=== PATIENT | female | born 1960 | race Caucasian/White ===

== ENCOUNTER → 2017-09-02 14:31 | Outpatient (CLI) | payer MEDICAID, SELFPAY ==
[2017-09-02 14:56] LABS: Alanine Aminotransferase 87 U/L (12-78); Albumin Level 3.8 gm/dL (3.4-5.0); Alkaline Phosphatase 218 U/L (46-116); Anion Gap 13.3 mEq/L (5-15); Aspartate Amino Transferase 97 U/L (15-37); Bilirubin,Total 0.6 mg/dL (0.2-1.0); Blood Urea Nitrogen 6 mg/dL (7-18); Carbon Dioxide 27 mmol/L (21.0-32.0); Chloride 101 mmol/L (98-107); Cholesterol 123 mg/dL (140-200); Creatinine,Serum 0.57 mg/dL (0.55-1.02); Estimated Glomerular Filt Rate 109 ml/min (>60); GFR (African American) 132 ML/MIN (>60); Globulin 3.7 gm/dl (1.3-3.2); Glucose 166 mg/dL (74-106); HDL Cholesterol 41 mg/dL (29-89); LDL Cholesterol 49 mg/dL (0-130); Potassium 4.3 mmoL/L (3.5-5.1); Sodium 137 mmol/L (136-145); Total Protein,Serum 7.5 gm/dL (6.4-8.2); Triglycerides 165 mg/dL (30-200); VLDL Cholesterol 33 mg/dL (0-40)
[2017-09-02 16:47] LABS: Hemoglobin A1C 6.7 % (0.0-7.0)
== END ==
PROVIDERS: PCP Internal Medicine Adolescent Medicine; Visit Provider Internal Medicine Adolescent Medicine
DX: E11.9 Type 2 diabetes mellitus without complications (principal); E78.5 Hyperlipidemia, unspecified
CPT/HCPCS: 36415; 80053; 80061; 83036

== ENCOUNTER → 2018-03-19 14:38 | Outpatient (CLI) | payer MEDICAID, SELFPAY ==
[2018-03-19 16:25] LABS: Alanine Aminotransferase 41 U/L (12-78); Albumin Level 3.6 gm/dL (3.4-5.0); Albumin/Globulin Ratio 1.2 (1.1-1.8); Alkaline Phosphatase 153 U/L (46-116); Anion Gap 12.3 mEq/L (5-15); Aspartate Amino Transferase 30 U/L (15-37); Bilirubin,Total 0.7 mg/dL (0.2-1.0); Blood Urea Nitrogen 5 mg/dL (7-18); Calcium 8.9 mg/dL (8.5-10.1); Carbon Dioxide 26 mmol/L (21.0-32.0); Chloride 97 mmol/L (98-107); Chol/HDL Ratio 3.7 (1-3.5); Cholesterol 128 mg/dL (140-200); Creatinine,Serum 0.53 mg/dL (0.55-1.02); Estimated Glomerular Filt Rate 118 ml/min (>60); GFR (African American) 143 ML/MIN (>60); Globulin 3.1 gm/dl (1.3-3.2); Glucose 153 mg/dL (74-106); HDL Cholesterol 35 mg/dL (29-89); LDL Cholesterol 59 mg/dL (0-130); Potassium 4.3 mmoL/L (3.5-5.1); Sodium 131 mmol/L (136-145); Total Protein,Serum 6.7 gm/dL (6.4-8.2); Triglycerides 168 mg/dL (30-200); VLDL Cholesterol 34 mg/dL (0-40)
[2018-03-19 17:09] LABS: Hemoglobin A1C 6.9 % (0.0-7.0)
== END ==
PROVIDERS: PCP Internal Medicine Adolescent Medicine; Visit Provider Internal Medicine Adolescent Medicine
DX: E78.5 Hyperlipidemia, unspecified (principal); E11.9 Type 2 diabetes mellitus without complications
CPT/HCPCS: 36415; 80053; 80061; 83036

== ENCOUNTER → 2018-09-12 14:42 | Outpatient (CLI) | payer MEDICAID, SELFPAY ==
[2018-09-12 15:39] LABS: Hemoglobin A1C 6.8 % (0.0-7.0)
[2018-09-12 15:49] LABS: Alanine Aminotransferase 44 U/L (12-78); Albumin Level 3.8 gm/dL (3.4-5.0); Albumin/Globulin Ratio 1.2 (1.1-1.8); Alkaline Phosphatase 147 U/L (46-116); Anion Gap 15.8 mEq/L (5-15); Aspartate Amino Transferase 33 U/L (15-37); Bilirubin,Total 0.7 mg/dL (0.2-1.0); Blood Urea Nitrogen 6 mg/dL (7-18); Calcium 9.2 mg/dL (8.5-10.1); Carbon Dioxide 26 mmol/L (21.0-32.0); Chloride 97 mmol/L (98-107); Chol/HDL Ratio 3.6 (1-3.5); Cholesterol 131 mg/dL (140-200); Creatinine,Serum 0.58 mg/dL (0.55-1.02); Estimated Glomerular Filt Rate 106 ml/min (>60); GFR (African American) 129 ML/MIN (>60); Globulin 3.2 gm/dl (1.3-3.2); Glucose 170 mg/dL (74-106); HDL Cholesterol 36 mg/dL (29-89); LDL Cholesterol 73 mg/dL (0-130); Potassium 4.8 mmoL/L (3.5-5.1); Sodium 134 mmol/L (136-145); Triglycerides 112 mg/dL (30-200); VLDL Cholesterol 22 mg/dL (0-40)
== END ==
PROVIDERS: Visit Provider Internal Medicine Adolescent Medicine
DX: E78.5 Hyperlipidemia, unspecified (principal); E11.9 Type 2 diabetes mellitus without complications; Z79.84 Long term (current) use of oral hypoglycemic drugs
CPT/HCPCS: 36415; 80053; 80061; 83036

== ENCOUNTER → 2019-02-13 15:33 | Outpatient (CLI) | payer MEDICAID, SELFPAY ==
[2019-02-13 16:18] LABS: Alanine Aminotransferase 35 U/L (12-78); Albumin Level 3.9 gm/dL (3.4-5.0); Albumin/Globulin Ratio 1.2 (1.1-1.8); Alkaline Phosphatase 138 U/L (46-116); Anion Gap 15.6 mEq/L (5-15); Bilirubin,Total 0.7 mg/dL (0.2-1.0); Blood Urea Nitrogen 4 mg/dL (7-18); Calcium 9.5 mg/dL (8.5-10.1); Carbon Dioxide 27 mmol/L (21.0-32.0); Chloride 98 mmol/L (98-107); Chol/HDL Ratio 3.4 (1-3.5); Cholesterol 127 mg/dL (140-200); Creatinine,Serum 0.49 mg/dL (0.55-1.02); Estimated Glomerular Filt Rate 129 ml/min (>60); GFR (African American) 156 ML/MIN (>60); Globulin 3.2 gm/dl (1.3-3.2); Glucose 97 mg/dL (74-106); HDL Cholesterol 37 mg/dL (29-89); LDL Cholesterol 67 mg/dL (0-130); Sodium 136 mmol/L (136-145); Total Protein,Serum 7.1 gm/dL (6.4-8.2); Triglycerides 115 mg/dL (30-200); VLDL Cholesterol 23 mg/dL (0-40)
[2019-02-13 16:21] LABS: Potassium 4.6 mmoL/L (3.5-5.1)
[2019-02-13 16:22] LABS: Aspartate Amino Transferase 25 U/L (15-37)
[2019-02-13 19:12] LABS: Hemoglobin A1C 6.6 % (0.0-7.0)
== END ==
PROVIDERS: Visit Provider Internal Medicine Adolescent Medicine
DX: E78.5 Hyperlipidemia, unspecified (principal); E11.9 Type 2 diabetes mellitus without complications; Z79.84 Long term (current) use of oral hypoglycemic drugs
CPT/HCPCS: 36415; 80053; 80061; 83036

== ENCOUNTER → 2019-07-17 15:09 | Outpatient (CLI) | payer OTHER, SELFPAY ==
--- NOTE | 2019-07-17 15:13 | CT_ITS ---
PROCEDURE: CT LUNG SCREENING CLINICAL INDICATION: H/O NICOTINE DEPENDENCE COMPARISON: No exams were available for comparison TECHNIQUE: The exam was performed on a GE Light Speed [address] scanner using 2.90 mGy CTDI. A low dose helical CT CHEST was performed on a multi-detector scanner. All CT scans at the facility use one or more dose reduction, viz: automated exposure control, ma/kV adjustment per patient size (including targeted exams where dose is matched to indication, i.e. head), or iterative reconstruction technique. The LDCT was performed in a facility that meets the criteria for the screening program. Data regarding this exam was submitted to ACR which is an approved registry. The order for this exam indicates that it came as a result of a lung cancer screening counseling shard decision-making visit that included all the elements required of such a visit including smoking cessation. The radiologist interpreting this exam meets the CMS criteria for the LDCT lung cancer screening program. The exam is reported using the Lung-RADS classification scale and reported to the ACR registry. NOTE: This study was performed for the specific purposes of lung cancer screening and is not an alternative to diagnostic chest CT. RADIATION DOSE: CTDI vol(CT dose Index-volume) = 2.90mG DLP (Dose Length Product) = 99.77 mGcm Lung Rads Category: Three FINDINGS: There is evidence of healed granulomatous disease with multiple calcified granulomas and mediastinal and hilar lymph nodes. Additionally multiple bilateral noncalcified parenchymal and pleural-based nodules are noted. Largest nodule appears to be pleural based in the right lower lobe approximately 6.6 millimeters image 50 series 4. The noncalcified nodules could represent granulomas. Neoplastic disease is not entirely excluded. OTHER FINDINGS: Band like density in the right lower lobe consistent with atelectasis or scarring is noted. There is atherosclerosis including multiple coronary calcifications. Calcifications are seen at the level of the renal samantha bilaterally probably vascular. Calcified hepatic granulomas are noted. There has been prior cholecystectomy. Cortical cysts of both kidneys are noted largest of the right kidney is approximately 3. 7 centimeters. IMPRESSION: Lung rads score 3 probably benign 6 month low-dose CT follow-up is recommended. Dictated by: Mode Pearson 07/18/2019 10:52 Electronically signed by Mode Pearson in [place] 07/18/2019 10:52
--- NOTE | 2019-07-17 15:15 | MM_ITS ---
PROCEDURE: MM DIG SCREENING MAMM BI W/CAD CLINICAL INDICATION: SCREENING COMPARISON: No exams were available for comparison TECHNIQUE: Standard CC and MLO images and 3D Tomosynthesis was obtained. R2 CAD reviewed. FINDINGS: The breasts are of average density with scattered areas of fibroglandular density. There are multiple benign appearing circumscribed nodules in both breasts in the upper-outer quadrants favored to be intramammary lymph nodes and there are multiple nodules consistent with lymph nodes projecting over both pectoral muscles. Six-month follow-up bilaterally is recommended to confirm the probably benign findings stable and benign. There is a cluster of suspicious morphology microcalcifications in the upper-outer quadrant of the right breast with associated nodule like density 6.5 x 7.3 millimeters. The finding is suspicious and biopsy for definitive tissue diagnosis is recommended. Benign appearing calcifications are otherwise seen scattered in both breasts. IMPRESSION: BI-RAD Category: 4 Suspicious Abnormality - Biopsy Considered for clustered microcalcifications right breast FOLLOW-UP: 6Month Follow-up bilateral probably benign nodules (A letter has been sent to the patient regarding results of the study.) Dictated by: Mode Pearson 07/20/2019 19:29 Electronically signed by Mode Pearson in [place] 07/20/2019 19:29
== END ==
PROVIDERS: PCP Internal Medicine Adolescent Medicine; Visit Provider Internal Medicine Adolescent Medicine
DX: Z87.891 Personal history of nicotine dependence (principal); Z12.2 Encounter for screening for malignant neoplasm of respiratory organs; Z12.31 Encounter for screening mammogram for malignant neoplasm of breast
CPT/HCPCS: 77063; 77067

== ENCOUNTER → 2019-11-19 15:53 | Outpatient (CLI) | payer OTHER, SELFPAY ==
[2019-11-19 16:13] LABS: Basophils # 0.1 K/mm3 (0-0.2); Basophils % 0.5 % (0.1-2.0); Eosinophils # 0.4 K/mm3 (0.0-0.4); Eosinophils % 2.3 % (0.1-12.0); Hematocrit 46.8 % (37.0-47.0); Hemoglobin 16.3 g/dL (12.2-16.2); Mean Corpuscular HGB Conc 34.8 g/dL (31.8-35.4); Mean Corpuscular Hemoglobin 32.2 pg (27.0-31.2); Mean Corpuscular Volume 92.7 fl (81-99); Monocytes # 0.7 K/mm3 (0.1-1.0); Monocytes % 4.4 % (1.7-9.3); Neutrophils # 11.8 K/mm3 (1.8-7.8); Neutrophils % 73.9 % (37.0-80.0); Platelet Count 421 K/mm3 (142-424); Red Blood Count 5.05 M/mm3 (4.20-5.40); Red Cell Distribution Width 13.1 % (11.5-17.5); White Blood Count 15.9 K/mm3 (4.8-10.8)
[2019-11-19 16:18] LABS: MANUAL DIFFERENTIAL MANUAL DIFFERENTIAL (MANUAL DIFF)
[2019-11-19 17:07] LABS: Hemoglobin A1C 6.4 % (4.0-6.0)
[2019-11-19 19:17] LABS: Chloride 97 mmol/L (98-107); Potassium 4.8 mmoL/L (3.5-5.1); Sodium 130 mmol/L (136-145)
[2019-11-19 19:20] LABS: Alanine Aminotransferase 18 U/L (12-78); Albumin/Globulin Ratio 1.7 (1.1-1.8); Alkaline Phosphatase 134 U/L (38-126); Amylase 31 U/L (30-110); Anion Gap 13.8 mEq/L (5-15); Aspartate Amino Transferase 29 U/L (14-36); Bilirubin,Total 0.7 mg/dl (0.2-1.3); Blood Urea Nitrogen 6 mg/dl (7-17); Calcium 9.2 mg/dl (8.4-10.2); Carbon Dioxide 24 mmol/L (22.0-30.0); Estimated Glomerular Filt Rate 126 ml/min (>60); GFR (African American) 152 ML/MIN (>60); Globulin 2.4 g/dL (1.3-3.2); Glucose 109 mg/dl (74-100); Lipase 116 U/L (23-300); Total Protein,Serum 6.4 g/dl (6.3-8.2)
[2019-11-19 21:28] LABS: Eosinophils % 1 % (0-3); Lymphocytes % 28 % (10-50); Monocytes % 1 % (2-9); Neutrophils % 70 % (42-76); Platelet Estimate Normal; RBC Morphology Normal; Total Cells Counted 100
== END ==
PROVIDERS: Visit Provider Nurse Practitioner Family
DX: R10.10 Upper abdominal pain, unspecified (principal); E11.9 Type 2 diabetes mellitus without complications; Z79.84 Long term (current) use of oral hypoglycemic drugs
CPT/HCPCS: 36415; 80053; 82150; 83036; 83690; 85007; 85025

== ENCOUNTER → 2020-08-26 16:21 | Outpatient (CLI) | payer OTHER, SELFPAY ==
[2020-08-26 17:23] LABS: Hemoglobin A1C 6.1 % (4.0-6.0)
[2020-08-26 18:01] LABS: Alanine Aminotransferase 32 U/L (12-78); Albumin Level 4.3 g/dl (3.5-5.0); Albumin/Globulin Ratio 1.8 (1.1-1.8); Alkaline Phosphatase 138 U/L (38-126); Anion Gap 14.8 mEq/L (5-15); Aspartate Amino Transferase 43 U/L (14-36); Bilirubin,Total 0.6 mg/dl (0.2-1.3); Blood Urea Nitrogen 4 mg/dl (7-17); Calcium 9.7 mg/dl (8.4-10.2); Carbon Dioxide 20 mmol/L (22.0-30.0); Chloride 103 mmol/L (98-107); Chol/HDL Ratio 7.3 (1-3.5); Cholesterol 233 mg/dl (140-200); Estimated Glomerular Filt Rate 125 ml/min (>60); GFR (African American) 152 ML/MIN (>60); Globulin 2.4 g/dL (1.3-3.2); Glucose 108 mg/dl (74-100); HDL Cholesterol 32 mg/dl (40-60); Potassium 4.8 mmoL/L (3.5-5.1); Sodium 133 mmol/L (136-145); Total Protein,Serum 6.7 g/dl (6.3-8.2); Triglycerides 400 mg/dl (30-150)
[2020-08-26 18:12] LABS: Direct LDL Cholesterol 125.51 mg/dL (100-129)
== END ==
PROVIDERS: Visit Provider Internal Medicine Adolescent Medicine
DX: E78.5 Hyperlipidemia, unspecified (principal); E11.9 Type 2 diabetes mellitus without complications; Z79.84 Long term (current) use of oral hypoglycemic drugs
CPT/HCPCS: 36415; 80053; 80061; 83036; 84443

== ENCOUNTER → 2020-12-16 14:36 | Outpatient (CLI) | payer OTHER, SELFPAY ==
[2020-12-16 17:22] LABS: Hemoglobin A1C 5.8 % (4.0-6.0)
[2020-12-16 18:40] LABS: Alanine Aminotransferase 33 U/L (12-78); Albumin Level 4.2 g/dl (3.5-5.0); Albumin/Globulin Ratio 1.8 (1.1-1.8); Alkaline Phosphatase 125 U/L (38-126); Anion Gap 13.9 mEq/L (5-15); Aspartate Amino Transferase 45 U/L (14-36); Bilirubin,Total 0.7 mg/dl (0.2-1.3); Blood Urea Nitrogen 3 mg/dl (7-17); Calcium 9.2 mg/dl (8.4-10.2); Carbon Dioxide 25 mmol/L (22.0-30.0); Chloride 100 mmol/L (98-107); Chol/HDL Ratio 2.3 (1-3.5); Cholesterol 91 mg/dl (140-200); Estimated Glomerular Filt Rate 162 ml/min (>60); GFR (African American) 196 ML/MIN (>60); Globulin 2.3 g/dL (1.3-3.2); Glucose 90 mg/dl (74-100); HDL Cholesterol 39 mg/dl (40-60); Potassium 4.9 mmoL/L (3.5-5.1); Sodium 134 mmol/L (136-145); Total Protein,Serum 6.5 g/dl (6.3-8.2); Triglycerides 127 mg/dl (30-150); VLDL Cholesterol 25 mg/dL (0-40)
[2020-12-16 18:52] LABS: Direct LDL Cholesterol 34.58 mg/dL (100-129)
== END ==
PROVIDERS: Visit Provider Internal Medicine Adolescent Medicine
DX: E78.5 Hyperlipidemia, unspecified (principal); E11.9 Type 2 diabetes mellitus without complications; Z79.84 Long term (current) use of oral hypoglycemic drugs
CPT/HCPCS: 36415; 80053; 80061; 83036

== ENCOUNTER → 2021-06-22 16:17 | Outpatient (CLI) | payer OTHER, SELFPAY ==
[2021-06-22 16:42] LABS: Basophils # 0.3 K/mm3 (0-0.2); Basophils % 2.6 % (0.1-2.0); Eosinophils # 0.6 K/mm3 (0.0-0.4); Eosinophils % 4.5 % (0.1-12.0); Hematocrit 46.9 % (37.0-47.0); Hemoglobin 15.4 g/dL (12.2-16.2); Lymphocytes # 3.5 K/mm3 (0.7-4.5); Lymphocytes % 27.2 % (10-50); Mean Corpuscular HGB Conc 32.8 g/dL (31.8-35.4); Mean Corpuscular Volume 100.7 fl (81-99); Mean Platelet Volume 8.8 fl (7.4-10.4); Monocytes # 0.6 K/mm3 (0.1-1.0); Monocytes % 4.3 % (1.7-9.3); Neutrophils # 7.9 K/mm3 (1.8-7.8); Neutrophils % 61.4 % (37.0-80.0); Platelet Count 470 K/mm3 (142-424); Red Blood Count 4.65 M/mm3 (4.20-5.40); Red Cell Distribution Width 13.1 % (11.5-17.5); White Blood Count 12.9 K/mm3 (4.8-10.8)
[2021-06-22 16:59] LABS: Hemoglobin A1C 6.2 % (4.0-6.0)
[2021-06-22 17:06] LABS: Alanine Aminotransferase 38 U/L (12-78); Albumin Level 4.3 g/dl (3.5-5.0); Alkaline Phosphatase 98 U/L (38-126); Anion Gap 11.6 mEq/L (5-15); Aspartate Amino Transferase 42 U/L (14-36); Bilirubin,Total 0.5 mg/dl (0.2-1.3); Blood Urea Nitrogen 3 mg/dl (7-17); Calcium 9.5 mg/dl (8.4-10.2); Carbon Dioxide 26 mmol/L (22.0-30.0); Chloride 96 mmol/L (98-107); Chol/HDL Ratio 2.9 (1-3.5); Cholesterol 111 mg/dl (140-200); Estimated Glomerular Filt Rate 162 ml/min (>60); GFR (African American) 196 ML/MIN (>60); Globulin 2.1 g/dL (1.3-3.2); Glucose 121 mg/dl (74-100); HDL Cholesterol 38 mg/dl (40-60); Potassium 4.6 mmoL/L (3.5-5.1); Sodium 129 mmol/L (136-145); Total Protein,Serum 6.4 g/dl (6.3-8.2); Triglycerides 169 mg/dl (30-150); VLDL Cholesterol 34 mg/dL (0-40)
== END ==
PROVIDERS: PCP Internal Medicine Adolescent Medicine; Visit Provider Internal Medicine Adolescent Medicine
DX: E11.9 Type 2 diabetes mellitus without complications (principal); E78.5 Hyperlipidemia, unspecified; Z79.84 Long term (current) use of oral hypoglycemic drugs
CPT/HCPCS: 36415; 80053; 80061; 83036; 85025

== ENCOUNTER → 2023-01-23 16:50 | Outpatient (CLI) | payer OTHER, SELFPAY ==
--- NOTE | 2023-01-23 16:56 | XR_ITS ---
PROCEDURE INFORMATION: Exam: XR Right Knee Exam date and time: 01/23/2023 4:57 PM Age: 62 years old Clinical indication: Pain; Knee; Right TECHNIQUE: Imaging protocol: Radiologic exam of the right knee. Views: 3 views. COMPARISON: CR [id number] [id number] 11/19/2016 12:39 PM FINDINGS: Bones/joints: There is tricompartmental osteoarthritis with loss of joint space, subchondral sclerosis, and productive changes. No acute fracture or dislocation is identified. Soft tissues: Normal. Vasculature: Scattered atherosclerotic disease of the arterial vasculature. IMPRESSION: Degenerative disease without acute injury identified.
== END ==
PROVIDERS: PCP Internal Medicine Adolescent Medicine; Visit Provider Internal Medicine Adolescent Medicine
DX: M25.561 Pain in right knee (principal)
CPT/HCPCS: 73562

== ENCOUNTER → 2023-02-08 13:37 | Outpatient (CLI) | payer OTHER, SELFPAY ==
--- NOTE | 2023-02-08 13:44 | MM_ITS ---
PROCEDURE INFORMATION: Exam: MG Bilateral Screening 3D Mammography Exam date and time: 02/08/2023 1:46 PM Age: 62 years old Clinical indication: Screening. Prior mammogram from 07/20/2019 recommended consideration of biopsy for calcifications in the right upper outer quadrant. History of paternal aunts with breast cancer. Personal history of melanoma. TECHNIQUE: Imaging protocol: Bilateral Screening tomosynthesis and 2D mammography including computer-aided detection (CAD) when performed. COMPARISON: MG MM DIG SCREENING MAMM BI W/CAD 07/17/2019 3:51 PM FINDINGS: MAMMOGRAPHY: Breast composition: There are scattered areas of fibroglandular density. Mass: None. Architectural distortion: None. Calcifications: Focal grouping of predominantly coarse calcifications in the right upper outer quadrant posterior 3rd appears stable since 07/20/2019. Asymmetric density: None. Skin thickening: None. Axillary adenopathy: None. IMPRESSION: Focal grouping of predominantly coarse calcifications in the right upper outer quadrant posterior 3rd appears stable since 07/20/2019, which is over 2 years. No mammographic evidence of malignancy. Annual screening is recommended unless otherwise clinically indicated. ASSESSMENT: BI-RADS Category 2: Benign
== END ==
PROVIDERS: PCP Internal Medicine Adolescent Medicine; Visit Provider Internal Medicine Adolescent Medicine
DX: Z12.31 Encounter for screening mammogram for malignant neoplasm of breast (principal)
CPT/HCPCS: 77063; 77067

== ENCOUNTER 2023-10-07 16:02 | Outpatient (CLI) | payer MEDICARE, OTHER, SELFPAY ==
[2023-10-07 16:17] LABS: Basophils # 0.1 K/mm3 (0-0.2); Basophils % 0.6 % (0.1-2.0); Eosinophils # 0.1 K/mm3 (0.0-0.4); Eosinophils % 0.9 % (0.1-12.0); Hematocrit 46.9 % (37.0-47.0); Hemoglobin 15.5 g/dL (12.2-16.2); Lymphocytes # 2.2 K/mm3 (0.7-4.5); Lymphocytes % 19.9 % (10-50); Mean Corpuscular HGB Conc 33.2 g/dL (31.8-35.4); Mean Corpuscular Hemoglobin 31.8 pg (27.0-31.2); Mean Corpuscular Volume 95.9 fl (81-99); Mean Platelet Volume 9.5 fl (7.4-10.4); Monocytes # 0.5 K/mm3 (0.1-1.0); Monocytes % 4.8 % (1.7-9.3); Neutrophils # 8.1 K/mm3 (1.8-7.8); Neutrophils % 73.8 % (37.0-80.0); Platelet Count 396 K/mm3 (142-424); Red Blood Count 4.89 M/mm3 (4.20-5.40); Red Cell Distribution Width 13.9 % (11.5-17.5)
[2023-10-07 16:36] LABS: Chloride 97 mmol/L (98-107); Potassium 3.5 mmoL/L (3.5-5.1); Sodium 135 mmol/L (136-145)
[2023-10-07 16:38] LABS: Alanine Aminotransferase 15 U/L (12-78); Aspartate Amino Transferase 27 U/L (14-36); Blood Urea Nitrogen 8 mg/dl (7-17); Estimated Glomerular Filt Rate 84 ml/min (>60); GFR (African American) 102 ML/MIN (>60)
[2023-10-07 16:39] LABS: Albumin Level 4.2 g/dl (3.5-5.0); Albumin/Globulin Ratio 1.9 (1.1-1.8); Alkaline Phosphatase 108 U/L (38-126); Anion Gap 10.5 mEq/L (5-15); Bilirubin,Total 1.3 mg/dl (0.2-1.3); Calcium 9.7 mg/dl (8.4-10.2); Carbon Dioxide 31 mmol/L (22.0-30.0); Cholesterol 103 mg/dl (140-200); Globulin 2.2 g/dL (1.3-3.2); Glucose 106 mg/dl (74-100); HDL Cholesterol 52 mg/dl (40-60); Iron 131 ug/dL (37-170); Total Protein,Serum 6.4 g/dl (6.3-8.2); Triglycerides 98 mg/dl (30-150); VLDL Cholesterol 20 mg/dL (0-40)
[2023-10-07 16:49] LABS: Total Iron Binding Capacity 339 ug/dL (265-497)
[2023-10-07 16:50] LABS: Direct LDL Cholesterol 51.55 mg/dL (100-129)
[2023-10-07 16:53] LABS: Free T4 (Free Thyroxine) 1.12 ng/dl (0.78-2.19)
[2023-10-07 17:06] LABS: 25-OH Vitamin D, Total < 12.8 ng/mL (30-100)
[2023-10-07 17:07] LABS: Hemoglobin A1C 6.4 % (4.0-6.0)
[2023-10-07 17:27] LABS: Ferritin 75.1 ng/ml (11.1-264)
[2023-10-07 17:47] LABS: Vitamin B12 284 pg/mL (239-931)
[2023-10-09 06:02] LABS: HIV Screen 4th Generation wRfx Non Reactive (Non Reactive)
[2023-10-09 07:54] LABS: HBsAg Screen Negative (Negative); HCV Ab Non Reactive (Non Reactive); Hep A Ab, IGM Negative (Negative); Hep B Core Ab, IgM Negative (Negative)
[2023-10-09 13:17] LABS: Rapid Plasma Reagin Ab Titer Non Reactive titer (NonRea<1:1)
== END 2023-10-07 23:59 | disposition home or self-care (01) ==
LOC: LAB.DROPOF 16:03
PROVIDERS: PCP Nurse Practitioner Family; Visit Provider Nurse Practitioner Family
DX: R41.3 Other amnesia (principal); R53.83 Other fatigue; E78.5 Hyperlipidemia, unspecified; Z11.3 Encounter for screening for infections with a predominantly sexual mode of transmission; E11.9 Type 2 diabetes mellitus without complications; Z79.84 Long term (current) use of oral hypoglycemic drugs; E55.9 Vitamin D deficiency, unspecified; Z79.899 Other long term (current) drug therapy; Z11.4 Encounter for screening for human immunodeficiency virus [HIV]
CPT/HCPCS: 80053; 80061; 80074; 82306; 82607; 82728; 82746; 83036; 83540; 83550; 84439; 84443; 85025; 86593; 86703; G0432

== ENCOUNTER 2023-10-08 15:53 | Outpatient (CLI) | payer MEDICARE, OTHER, SELFPAY ==
[2023-10-08 15:58] LABS: Microscopic, Urine URINE MICROSCOPIC (MICROSCOPIC)
[2023-10-08 19:03] LABS: Appearance,Urine CLEAR (Clear); Bilirubin,Urine Negative (Negative); Blood, Urine TRACE-I (Negative); Color,Urine YELLOW (Yellow); Glucose,Urine (UA) Negative (Negative); Ketones,Urine Negative (Negative); Leukocyte Esterase,Urine 1+ (Negative); Nitrate,Urine Negative (Negative); PH,Urine 6.5 (5.0-8.5); Protein,Urine Negative (Negative); Specific Gravity, Urine <= 1.005 (1.005-1.030); Urobilinogen,Urine 0.2 EU/dl (0.2)
[2023-10-08 19:08] LABS: Creatinine,Urine Random 40 mg/dL (Not Estab.)
[2023-10-08 19:17] LABS: Bacteria,Urine 2+ /lpf; RBC,Urine Occasional #/hpf (0-3)
[2023-10-11 08:49] LABS: Neisseria gonorrhoeae, NAA Negative (Negative)
== END 2023-10-08 23:59 | disposition home or self-care (01) ==
LOC: LAB.DROPOF 15:53
PROVIDERS: PCP Nurse Practitioner Family; Visit Provider Nurse Practitioner Family
DX: E11.9 Type 2 diabetes mellitus without complications; R53.83 Other fatigue; R41.3 Other amnesia; B96.1 Klebsiella pneumoniae [K. pneumoniae] as the cause of diseases classified elsewhere
CPT/HCPCS: 81001; 82043; 82570; 87077; 87086; 87088; 87186; 87491; 87591

== ENCOUNTER 2023-11-04 15:30 | Outpatient (CLI) | payer OTHER, SELFPAY ==
--- NOTE | 2023-11-04 15:31 | CT_ITS ---
FINAL REPORT CLINICAL HISTORY: lung cancer screening smoker 40 years, 1PPD FINDINGS: CTDI vol (mGy): 2.90 DLP: 100.[address] images of the chest were obtained using the low-dose protocol for screening.There are moderate coronary artery calcifications. There is no evidence of mediastinal or hilar mass or adenopathy. No axillary mass or adenopathy is identified. On the lung window images, mild scarring is seen. There are multiple calcified granulomas. Multiple, less than 5 mm pulmonary nodules are seen. There is a 4 mm right upper lobe nodule on image 32. There is also a 4 mm left lower lobe nodule on image 57. Other smaller nodules are seen bilaterally. Limited imaging of the upper abdomen demonstrates postoperative change of cholecystectomy. There are low-attenuation bilateral renal masses, favor cysts. IMPRESSION: Multiple, less than 5 mm pulmonary nodules. Lung RADS category 2. Recommend 12 month followup low-dose CT for further evaluation. Reviewed, Interpreted and Dictated by Indra Melgar III, MD Transcribed by Yodit Nieves Authenticated and . [facility]
== END 2023-11-04 23:59 | disposition home or self-care (01) ==
LOC: RAD 15:30
PROVIDERS: PCP Nurse Practitioner Family; Visit Provider Nurse Practitioner Family
DX: Z87.891 Personal history of nicotine dependence (principal)
CPT/HCPCS: 71271

== ENCOUNTER 2023-11-27 12:45 | Outpatient (CLI) | payer OTHER, SELFPAY ==
[2023-11-27 13:30] LABS: Blood Urea Nitrogen 8 mg/dl (7-17); Estimated Glomerular Filt Rate 124 ml/min (>60); GFR (African American) 150 ML/MIN (>60)
== END 2023-11-27 23:59 | disposition home or self-care (01) ==
LOC: RAD 12:45
PROVIDERS: PCP Nurse Practitioner Family; Visit Provider Nurse Practitioner Family
DX: R41.3 Other amnesia (principal)
CPT/HCPCS: 36415; 82565; 84520

== ENCOUNTER 2023-11-27 14:16 | Emergency (ER) | payer OTHER, SELFPAY ==
--- NOTE | 2023-11-27 14:23 | ED_ITS ---
<Statement entered by Kenneth Nur MD - 11/28/23 23:01> I was consulted by the SAAD, and we discussed the complexity of the problems being addressed. I approved the treatment and management plan for this patient's care in the emergency department, thus performing a substantive portion of the medical decision making. Kenneth Nur MD, LUIZA, FACEP Discharge Plan Disposition Patient Disposition: Home, Self-Care Condition: Good Prescriptions Prescriptions: No Action atorvastatin 40 mg tablet 40 mg PO HS 30 Days Qty: 30 Patient Comments: potassium chloride 20 mEq tablet,ER particles/crystals 20 meq PO DAILY 30 Days Qty: 30 Patient Comments: cetirizine 10 mg tablet 10 mg PO DAILY Patient Comments: TAKE 1 TABLET BY MOUTH ONCE DAILY metformin 1,000 mg tablet 1,000 mg PO BID Qty: 180 3RF (DME) blood-glucose meter [[employer] Micro Glucose Monitor] kit See Dose Instructions .ROUTE .MEDSUPPLY Qty: 1 Rx Instructions: As directed ascorbic acid (vitamin C) 1,000 mg tablet 1 g PO Q6H cholecalciferol (vitamin D3) 1,250 mcg (50,000 unit) capsule 1,250 mcg PO WEEKLY Qty: 12 3RF mecobalamin (vitamin B12) 1,000 mcg tablet,chewable 1,000 mcg PO DAILY Qty: 90 3RF coQ10 (ubiquinol) [Qunol Judd CoQ10] 100 mg capsule 100 mg PO BID Qty: 180 3RF Referrals Follow up/Referrals: Moi Marie DO [Staff Physician] - See instructions (Osteoarthritis and joint effusion right) Yessenia Ball APRN [Primary Care Provider] - See instructions Activity Restrictions/Add. Instructions Additional Instructions/Restrictions: I have referred you to orthopedics for further evaluation of your osteoarthritis and joint effusion of the right leg. You can take Tylenol alternating with Motrin for your pain. Please follow-up with your PCP in 1 week. Return to ER for any worsening signs or symptoms. Clinical Impressions Clinical Impression: Dependent edema Joint effusion of knee Qualifiers: Laterality: right Qualified Code(s): M25.461 - Effusion, right knee Instructions Patient Instructions: DI for Osteoarthritis Discharge ED Provider: Kenneth Nur General Adult HPI <STEFANIE Lim - Last Filed: 11/27/23 16:25> General Chief complaint: Extremity Injury, Lower Stated complaint: swelling in R foot Time Seen by Provider: 11/27/23 14:23 History of Present Illness HPI narrative: Patient presents for evaluation of right lower extremity swelling and pain. Patient has had a history of confusion and organic cognitive decline that is currently being worked up. Patient was scheduled to have an MRI of the brain today however the machine was down. Daughter brought the patient to the emergency department for evaluation of right lower extremity swelling and right knee pain. Patient herself cannot tell me when or how she injured it but believes it was from a fall sometime ago. Patient also has a known history of osteoarthritis. Patient denies calf tenderness but reports exquisite tenderness at the knee. She denies chest pain fever chills hemoptysis hematochezia melena nausea vomiting diarrhea. Related Data Home Medications Medication Instructions Recorded Confirmed ascorbic acid (vitamin C) 1,000 mg 1 g PO Q6H 01/23/18 11/21/23 tablet blood-glucose meter ([employer] #1 ea 01/23/18 11/21/23 Glucose Monitor kit) atorvastatin 40 mg tablet 40 mg PO HS 30 days #30 tabs 10/07/23 11/21/23 cetirizine 10 mg tablet 10 mg PO DAILY 10/07/23 11/21/23 potassium chloride 20 mEq 20 meq PO DAILY 30 days #30 tabs 10/18/23 11/21/23 tablet,extended release(part/cryst) Previous Rx's Medication Instructions Recorded cholecalciferol (vitamin D3) 1,250 1,250 mcg PO WEEKLY #12 caps 10/09/23 mcg (50,000 unit) capsule coQ10 (ubiquinol) 100 mg capsule 100 mg PO BID #180 caps 10/09/23 (Qunol Judd CoQ10) mecobalamin (vitamin B12) 1,000 1,000 mcg PO DAILY #90 tabs 10/09/23 mcg chewable tablet metformin 1,000 mg tablet 1,000 mg PO BID #180 tabs 11/18/23 Allergies Allergy/AdvReac Type Severity Reaction Status Date / Time clarithromycin [From BIAXIN] Allergy Unknown Verified 11/27/23 14:49 morphine [MORPHINE] Allergy Unknown Verified 11/27/23 14:49 Penicillins [PENICILLINS] Allergy Unknown Verified 11/27/23 14:49 propoxyphene [From DARVON] Allergy Unknown Verified 11/27/23 14:49 [facility] <STEFANIE Lim - Last Filed: 11/27/23 16:25> [facility] Disclaimer: The information contained in this section may have been updated after the patient was seen, as this information can be updated by other users. 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 T2DM (type 2 diabetes mellitus) Surgical History H/O melanoma excision 1998 Social History Smoking Status: Current every day smoker tobacco type: cigarettes packs per day: 1 alcohol intake: never substance use type: denies use current occupational status: disabled Travel in the last 8 weeks: None <STEFANIE Lim - Last Filed: 11/27/23 16:25> ROS Obtained: Yes Systems reviewed as appropriate & no additional complaints except as documented Physical Exam <STEFANIE Lim - Last Filed: 11/27/23 16:25> General General appearance: alert and in no apparent distress Respiratory Respiratory exam: Present normal lung sounds bilaterally; Absent respiratory distress or wheezes Cardiovascular Cardiovascular exam: Present regular rate and normal rhythm Expanded Lower Extremity Exam Right: Knee exam: Present tenderness, swelling, effusion, pain with valgus, pain with varus and knee extension intact; Absent normal inspection or full ROM Lower leg exam: Present swelling and Achilles tendon intact; Absent normal inspection, full ROM, tenderness, ecchymosis, deformity, crepitus, erythema, palpable cord or Homans' sign Ankle exam: Present full ROM and swelling; Absent normal inspection or tenderness Foot/toe exam: Present full ROM and swelling; Absent normal inspection or tenderness Neurological Exam Neurological exam: Present alert; Absent oriented X3 Psychiatric Psychiatric exam: Present normal affect, normal mood and other (Pleasantly confused) Medical Decision Making <STEFANIE Lim - Last Filed: 11/27/23 16:25> Medical Records Medical records reviewed: Yes I reviewed the patient's medical records. Amrk Inquiry Pt receiving controlled substance: No Vital Signs: 11/27/23 14:32 11/27/23 16:30 Temperature 98.1 F Temperature Source Oral Pulse Rate 89 Pulse Rate [Left] 99 H Respiratory Rate 16 Blood Pressure 177/97 H Blood Pressure [Right Radial Artery] 126/88 Blood Pressure Mean [Right Radial Artery] 100 Blood Pressure Source [Right Radial Artery] Automatic Cuff Blood Pressure Position [Right Radial Artery] Sitting 02 Sat by Pulse Oximetry 97 96 Lab Data Lab results reviewed: Yes I reviewed the patient's lab results. Lab Results 11/27/23 14:55: WBC 7.9, RBC 4.24, Hgb 13.5, Hct 41.7, MCV 98.3, MCH 31.7 H, MCHC 32.3, RDW 14.4, Plt Count 427 H, MPV 8.6, Neut % (Auto) 63.1, Lymph % (Auto) 29.0, [place] % (Auto) 3.6, Eos % (Auto) 3.1, Baso % (Auto) 1.2, Neut # (Auto) 5.0, Lymph # (Auto) 2.3, [place] # (Auto) 0.3, Eos # (Auto) 0.3, Baso # (Auto) 0.1, ESR 65 H, PT 10.5, INR 0.97, Sodium 140, Potassium 3.2 L, Chloride 103, Carbon Dioxide 30, Anion Gap 10.2, BUN 8, Creatinine 0.50 L, Estimated Creat Clear 58, Estimated GFR 124, Est GFR ( Amer) 150, Glucose 151 H, Calcium 9.1, Magnesium 1.3 L, Total Bilirubin 0.7, AST 28, ALT 20, Alkaline Phosphatase 98, C-Reactive Protein 7.1 H, Total Protein 7.0, Albumin 4.2, Globulin 2.8, Albumin/Globulin Ratio 1.5, TSH 3.84 11/27/23 14:55 11/27/23 14:55 Orders (Tests/Meds): ED MEDICATIONS Generic Name Dose Route Start Last Admin Trade Name Freq PRN Reason Stop Dose Admin Magnesium Sulfate 2 gm in 50 mls @ 50 mls/hr 11/27/23 16:03 11/27/23 16:10 Magnesium Sulfate 2gm/50ml Premix IV 11/27/23 17:02 50 mls/hr ONCE ONE Administration Discontinued Medications Generic Name Dose Route Start Last Admin Trade Name Freq PRN Reason Stop Dose Admin Acetaminophen 1,000 mg 11/27/23 14:40 11/27/23 14:54 Acetaminophen 1,000mg/100ml Vial IV 11/27/23 14:41 1,000 mg ONCE ONE Administration Dexamethasone Sodium Phosphate 10 mg 11/27/23 14:40 11/27/23 14:54 Dexamethasone 4mg/Ml 5ml Mdv IV 11/27/23 14:41 10 mg ONCE ONE Administration Ketorolac Tromethamine 15 mg 11/27/23 14:40 11/27/23 14:54 Ketorolac 30mg/Ml Vial IV 11/27/23 14:41 15 mg ONCE ONE Administration ORDERS Category Date Time Status Knee XR right 3 views [XR knee RT 3V] Stat Exams 11/27/23 14:40 Completed CBC w/Auto Diff [Complete Blood Count Auto Diff] Stat Lab 11/27/23 14:55 Completed CMP [Comprehensive Metabolic Panel] Stat Lab 11/27/23 14:55 Completed CRP [C-Reactive Protein] Stat Lab 11/27/23 14:55 Completed ESR [Erythrocyte Sedimentation Rate] Stat Lab 11/27/23 14:55 Completed INR [Prothrombin Time INR] Stat Lab 11/27/23 14:55 Completed Magnesium Stat Lab 11/27/23 14:55 Completed TSH [Thyroid Stimulating Hormone] Stat Lab 11/27/23 14:55 Completed CA venous doppler LE RT Stat Y 11/27/23 15:06 Completed Medical Decision Narrative: In summary patient is a 62-year-old female who presents to the emergency department for evaluation of right lower extremity swelling and right knee pain. Patient is hemodynamically stable upon arrival, afebrile. Physical exam is remarkable for right knee pain on palpation medially along with what appears to be a very large joint effusion. There is no evidence of erythema ecchymosis or bony deformity. Patient does have pitting edema distally to the knee to the foot. There is no bony deformity distally and patient has full range of motion and no pain no palpable cords.. Differential diagnosis includes osteoarthritis versus joint effusion versus DVT etc. Initial workup will be conducted with plain film x-rays hematologic labs twelve-lead EKG urinalysis. Initial interventions include crystalloid bolus Toradol Tylenol. Initial workup reviewed by me shows that her inflammatory markers are elevated however the remainder of her hematologic labs are nonactionable and my informal interpretation of her imaging of her knees shows a significant right joint effusion significant osteoarthritis but no acute fractures noted. DVT ultrasound shows no thrombus. Upon repeat evaluation patient reports moderate decrease in her pain. Given this patient is appropriate for discharge with referral to orthopedics and close follow-up with her PCP. <Zoltan Delgado MD - Last Filed: 11/27/23 16:44> Vital Signs: 11/27/23 14:32 11/27/23 16:30 Temperature 98.1 F Temperature Source Oral Pulse Rate 89 Pulse Rate [Left] 99 H Respiratory Rate 16 Blood Pressure 177/97 H Blood Pressure [Right Radial Artery] 126/88 Blood Pressure Mean [Right Radial Artery] 100 Blood Pressure Source [Right Radial Artery] Automatic Cuff Blood Pressure Position [Right Radial Artery] Sitting 02 Sat by Pulse Oximetry 97 96 Lab Data Lab Results 11/27/23 14:55: WBC 7.9, RBC 4.24, Hgb 13.5, Hct 41.7, MCV 98.3, MCH 31.7 H, MCHC 32.3, RDW 14.4, Plt Count 427 H, MPV 8.6, Neut % (Auto) 63.1, Lymph % (Auto) 29.0, [place] % (Auto) 3.6, Eos % (Auto) 3.1, Baso % (Auto) 1.2, Neut # (Auto) 5.0, Lymph # (Auto) 2.3, [place] # (Auto) 0.3, Eos # (Auto) 0.3, Baso # (Auto) 0.1, ESR 65 H, PT 10.5, INR 0.97, Sodium 140, Potassium 3.2 L, Chloride 103, Carbon Dioxide 30, Anion Gap 10.2, BUN 8, Creatinine 0.50 L, Estimated Creat Clear 58, Estimated GFR 124, Est GFR ( Amer) 150, Glucose 151 H, Calcium 9.1, Magnesium 1.3 L, Total Bilirubin 0.7, AST 28, ALT 20, Alkaline Phosphatase 98, C-Reactive Protein 7.1 H, Total Protein 7.0, Albumin 4.2, Globulin 2.8, Albumin/Globulin Ratio 1.5, TSH 3.84 Orders (Tests/Meds): ED MEDICATIONS Generic Name Dose Route Start Last Admin Trade Name Freq PRN Reason Stop Dose Admin Magnesium Sulfate 2 gm in 50 mls @ 50 mls/hr 11/27/23 16:03 11/27/23 16:10 Magnesium Sulfate 2gm/50ml Premix IV 11/27/23 17:02 50 mls/hr ONCE ONE Administration Discontinued Medications Generic Name Dose Route Start Last Admin Trade Name [place] PRN Reason Stop Dose Admin Acetaminophen 1,000 mg 11/27/23 14:40 11/27/23 14:54 Acetaminophen 1,000mg/100ml Vial IV 11/27/23 14:41 1,000 mg ONCE ONE Administration Dexamethasone Sodium Phosphate 10 mg 11/27/23 14:40 11/27/23 14:54 Dexamethasone 4mg/Ml 5ml Mdv IV 11/27/23 14:41 10 mg ONCE ONE Administration Ketorolac Tromethamine 15 mg 11/27/23 14:40 11/27/23 14:54 Ketorolac 30mg/Ml Vial IV 11/27/23 14:41 15 mg ONCE ONE Administration ORDERS Category Date Time Status Knee XR right 3 views [XR knee RT 3V] Stat Exams 11/27/23 14:40 Completed CBC w/Auto Diff [Complete Blood Count Auto Diff] Stat Lab 11/27/23 14:55 Completed CMP [Comprehensive Metabolic Panel] Stat Lab 11/27/23 14:55 Completed CRP [C-Reactive Protein] Stat Lab 11/27/23 14:55 Completed ESR [Erythrocyte Sedimentation Rate] Stat Lab 11/27/23 14:55 Completed INR [Prothrombin Time INR] Stat Lab 11/27/23 14:55 Completed Magnesium Stat Lab 11/27/23 14:55 Completed TSH [Thyroid Stimulating Hormone] Stat Lab 11/27/23 14:55 Completed CA venous doppler LE RT Stat Y 11/27/23 15:06 Completed Medical Decision Narrative: In summary patient is a 62-year-old female who presents to the emergency department for evaluation of right lower extremity swelling and right knee pain. Patient is hemodynamically stable upon arrival, afebrile. Physical exam is remarkable for right knee pain on palpation medially along with what appears to be a very large joint effusion. There is no evidence of erythema ecchymosis or bony deformity. Patient does have pitting edema distally to the knee to the foot. There is no bony deformity distally and patient has full range of motion and no pain no palpable cords.. Differential diagnosis includes osteoarthritis versus joint effusion versus DVT etc. Initial workup will be conducted with plain film x-rays hematologic labs twelve-lead EKG urinalysis. Initial interventions include crystalloid bolus Toradol Tylenol. Initial workup reviewed by me shows that her inflammatory markers are elevated however the remainder of her hematologic labs are nonactionable and my informal interpretation of her imaging of her knees shows a significant right joint effusion significant osteoarthritis but no acute fractures noted. DVT ultrasound shows no thrombus. Upon repeat evaluation patient reports moderate decrease in her pain. Given this patient is appropriate for discharge with referral to orthopedics and close follow-up with her PCP. I was consulted by the SAAD, and we discussed the complexity of the problems being addressed. I approved the treatment and management plan for this patient's care in the emergency department, thus performing a substantive portion of the medical decision making. Zoltan Delgado MD Critical Care <STEFANIE Lim - Last Filed: 11/27/23 16:25> Critical Care Time Critical Care Time: No
[2023-11-27 14:32] VITALS: BP 126/88; PULSE 99; RESP 16; TEMP 36.7; O2SAT 97; BMI 26.8
--- NOTE | 2023-11-27 14:40 | XR_ITS ---
FINAL REPORT CLINICAL HISTORY: Right knee joint pain COMPARISON: None FINDINGS: RIGHT KNEE 3 views of the right knee were obtained. There is no acute fracture or dislocation. There is severe degenerative change within the medial compartment. Osteopenia is noted. There is a small joint effusion. Soft tissues are unremarkable. IMPRESSION: Severe degenerative change and small joint effusion. Reviewed, Interpreted and Dictated by Clint Garcia MD Transcribed by Gisela Young Authenticated and [facility]
[2023-11-27] MEDS: DEXAMETHASONE 4MG/ML 5ML MDV 10 MG IV (14:54)
[2023-11-27] MEDS: ACETAMINOPHEN 1,000MG/100ML VIAL 1000 MG IV (14:54)
[2023-11-27] MEDS: KETOROLAC 30MG/ML VIAL 15 MG IV (14:54)
--- NOTE | 2023-11-27 15:06 | CA_ITS ---
FINAL REPORT TECHNIQUE: Compression vela scale and Doppler evaluation CLINICAL HISTORY: EDEMA AND PAIN RLE COMPARISON: None FINDINGS: Femoral and popliteal veins show normal compressibility and flow. Visualized portion of the calf veins are patent by Doppler exam. IMPRESSION: No evidence of right lower extremity deep venous thrombosis Reviewed, Interpreted and Dictated by Clint Garcia MD Transcribed by Gisela Young Authenticated and [facility]
[2023-11-27 15:10] LABS: Chloride 103 mmol/L (98-107); Potassium 3.2 mmoL/L (3.5-5.1); Sodium 140 mmol/L (136-145)
[2023-11-27 15:12] LABS: Alanine Aminotransferase 20 U/L (12-78); Aspartate Amino Transferase 28 U/L (14-36); Blood Urea Nitrogen 8 mg/dl (7-17); Creatinine Clearance Estimated 58 mL/min (50-200); Estimated Glomerular Filt Rate 124 ml/min (>60); GFR (African American) 150 ML/MIN (>60)
[2023-11-27 15:13] LABS: Albumin Level 4.2 g/dl (3.5-5.0); Albumin/Globulin Ratio 1.5 (1.1-1.8); Alkaline Phosphatase 98 U/L (38-126); Anion Gap 10.2 mEq/L (5-15); Bilirubin,Total 0.7 mg/dl (0.2-1.3); Calcium 9.1 mg/dl (8.4-10.2); Carbon Dioxide 30 mmol/L (22.0-30.0); Globulin 2.8 g/dL (1.3-3.2); Glucose 151 mg/dl (74-100); Magnesium 1.3 mg/dl (1.6-2.3)
--- NOTE | 2023-11-27 15:13 | PC.NURSE ---
I rounded on the pt and had her put on a gown for her doppler. pt states her pain has improved slightly and is now a 5/10. pt denies new complaints. vss.
[2023-11-27 15:15] LABS: Basophils # 0.1 K/mm3 (0-0.2); Basophils % 1.2 % (0.1-2.0); Eosinophils # 0.3 K/mm3 (0.0-0.4); Eosinophils % 3.1 % (0.1-12.0); Hematocrit 41.7 % (37.0-47.0); Hemoglobin 13.5 g/dL (12.2-16.2); Lymphocytes # 2.3 K/mm3 (0.7-4.5); Mean Corpuscular HGB Conc 32.3 g/dL (31.8-35.4); Mean Corpuscular Hemoglobin 31.7 pg (27.0-31.2); Mean Corpuscular Volume 98.3 fl (81-99); Mean Platelet Volume 8.6 fl (7.4-10.4); Monocytes # 0.3 K/mm3 (0.1-1.0); Monocytes % 3.6 % (1.7-9.3); Neutrophils % 63.1 % (37.0-80.0); Platelet Count 427 K/mm3 (142-424); Red Blood Count 4.24 M/mm3 (4.20-5.40); Red Cell Distribution Width 14.4 % (11.5-17.5); White Blood Count 7.9 K/mm3 (4.8-10.8)
--- NOTE | 2023-11-27 15:15 | PC.NURSE ---
VASCULAR AT BEDSIDE FOR DOPPLER
[2023-11-27 15:18] LABS: C-Reactive Protein 7.1 mg/L (0-4)
[2023-11-27 15:20] LABS: INR 0.97 (0.9-1.1); Prothrombin Time 10.5 seconds (10.1-12.5)
[2023-11-27 15:44] LABS: Thyroid Stimulating Hormone 3.84 uIU/mL (0.465-4.68)
[2023-11-27] MEDS: MAGNESIUM SULFATE IN WATER 2 GM/50 ML PIGGYBACK IV (16:10)
[2023-11-27 16:30] VITALS: BP 177/97; PULSE 89; O2SAT 96
[2023-11-27 16:33] LABS: Erythrocyte Sedimentation Rate 65 mm/hr (0-30)
--- NOTE | 2023-11-27 16:47 | PC.NURSE ---
PT ambulatory to bathroom. No other needs voiced. Call light within reach.
--- NOTE | 2023-11-27 17:02 | PC.NURSE ---
PT provided with harsha
[2023-11-27 17:16] VITALS: BP 136/85; PULSE 88; RESP 14; TEMP 36.7
== END 2023-11-27 17:18 | disposition home or self-care (01) ==
PROVIDERS: Physician Assistant; Emergency Provider Student in an Organized Health Care Education/Training Program; PCP Nurse Practitioner Family
DX: R60.0 Localized edema (principal); M25.561 Pain in right knee; M25.461 Effusion, right knee; E87.6 Hypokalemia; E11.9 Type 2 diabetes mellitus without complications; Z79.84 Long term (current) use of oral hypoglycemic drugs; F17.210 Nicotine dependence, cigarettes, uncomplicated
CPT/HCPCS: 73562; 80053; 83735; 84443; 85025; 85610; 85651; 86140; 93971; 96365; 96375; 99284; J0131; J1885; J3475

== ENCOUNTER 2023-12-24 12:57 | Outpatient (CLI) | payer MEDICARE, OTHER, SELFPAY ==
--- NOTE | 2023-12-24 12:57 | MR_ITS ---
FINAL REPORT TECHNIQUE: Multiplanar MR, without and with gadolinium enhancement CLINICAL HISTORY: memory loss, HEADACHE AND DIZZINESS FINDINGS: Diffusion sequences show no signal abnormality to indicate acute infarct. There are periventricular and subcortical white matter signal changes compatible with chronic microvascular change. There is a dominant arachnoid cyst in the anterior left temporal lobe. No other mass, hemorrhage or edema is seen. Ventricles are normal. Major vascular flow voids are intact. Following contrast administration, no mass or abnormal enhancement is seen. IMPRESSION: Chronic changes as above. All Reviewed, Interpreted and Dictated by Clint Garcia MD Transcribed by Bella Dove Authenticated and [facility]
== END 2023-12-24 23:59 | disposition home or self-care (01) ==
LOC: RAD 12:57
PROVIDERS: PCP Nurse Practitioner Family; Visit Provider Nurse Practitioner Family
DX: R41.3 Other amnesia (principal)
CPT/HCPCS: 70553; A9576

== ENCOUNTER 2024-01-06 08:58 | Outpatient (CLI) | payer MEDICARE, OTHER, SELFPAY ==
[2024-01-06 14:16] LABS: Alanine Aminotransferase 16 U/L (12-78); Albumin Level 3.8 g/dl (3.5-5.0); Albumin/Globulin Ratio 1.5 (1.1-1.8); Alkaline Phosphatase 82 U/L (38-126); Anion Gap 9.5 mEq/L (5-15); Aspartate Amino Transferase 27 U/L (14-36); Bilirubin,Total 0.7 mg/dl (0.2-1.3); Blood Urea Nitrogen 7 mg/dl (7-17); Calcium 9.3 mg/dl (8.4-10.2); Carbon Dioxide 31 mmol/L (22.0-30.0); Chloride 101 mmol/L (98-107); Chol/HDL Ratio 5.4 (1-3.5); Cholesterol 236 mg/dl (140-200); Estimated Glomerular Filt Rate 124 ml/min (>60); GFR (African American) 150 ML/MIN (>60); Globulin 2.6 g/dL (1.3-3.2); Glucose 179 mg/dl (74-100); HDL Cholesterol 44 mg/dl (40-60); Magnesium 1.6 mg/dl (1.6-2.3); Potassium 3.5 mmoL/L (3.5-5.1); Sodium 138 mmol/L (136-145); Total Protein,Serum 6.4 g/dl (6.3-8.2); Triglycerides 261 mg/dl (30-150); VLDL Cholesterol 52 mg/dL (0-40)
[2024-01-06 14:27] LABS: Direct LDL Cholesterol 143.05 mg/dL (100-129)
[2024-01-06 14:34] LABS: 25-OH Vitamin D, Total 29.3 ng/mL (30-100)
[2024-01-06 14:45] LABS: Hemoglobin A1C 6.5 % (4.0-6.0)
[2024-01-06 15:06] LABS: Vitamin B12 889 pg/mL (239-931)
== END 2024-01-06 23:59 | disposition home or self-care (01) ==
LOC: LAB.DROPOF 01-08 08:58
PROVIDERS: PCP Nurse Practitioner Family; Visit Provider Nurse Practitioner Family
DX: E53.8 Deficiency of other specified B group vitamins; E11.9 Type 2 diabetes mellitus without complications; E78.5 Hyperlipidemia, unspecified; E55.9 Vitamin D deficiency, unspecified
CPT/HCPCS: 80053; 80061; 82306; 82607; 83036; 83735

== ENCOUNTER 2024-01-28 10:11 | Outpatient (CLI) | payer MEDICARE, OTHER, SELFPAY ==
[2024-01-28] MEDS: ALBUTEROL 0.083% 2.5 MG/3 ML NEB IH (12:48)
[2024-01-28 12:50] LABS: Erythrocyte Sedimentation Rate 13 mm/hr (0-30)
[2024-01-29 14:16] LABS: Rapid Plasma Reagin Ab Titer Non Reactive titer (NonRea<1:1)
[2024-01-29 19:35] LABS: Anti-Centromere B Antibodies <0.2 AI (0.0-0.9); Anti-DNA (DS) Ab Qn 1 IU/mL (0-9); Anti-Jo-1 <0.2 AI (0.0-0.9); Anti-Smith Antibody <0.2 AI (0.0-0.9); Antichromatin Antibodies <0.2 AI (0.0-0.9); Antiscleroderma-70 Antibodies <0.2 AI (0.0-0.9); RNP Antibodies <0.2 AI (0.0-0.9); Sjogren's Anti-SS-A <0.2 AI (0.0-0.9); Sjogren's Anti-SS-B <0.2 AI (0.0-0.9)
== END 2024-01-28 23:59 | disposition home or self-care (01) ==
LOC: RT 10:13
PROVIDERS: PCP Nurse Practitioner Family; Visit Provider Specialist
DX: R41.3 Other amnesia (principal); E53.8 Deficiency of other specified B group vitamins; R53.83 Other fatigue; R51.9 Headache, unspecified; J44.9 Chronic obstructive pulmonary disease, unspecified; R06.02 Shortness of breath; F17.210 Nicotine dependence, cigarettes, uncomplicated
CPT/HCPCS: 36415; 85651; 86225; 86235; 86593; 94060; 94618; J7613

== ENCOUNTER 2024-10-06 16:48 | Emergency (ER) | payer MEDICARE, SELFPAY ==
[2024-10-06] VITALS (8 sets, daily range): BP systolic 131–169; BP diastolic 81–103; PULSE 95–113; RESP 18–24; TEMP 36.9–37.3; O2SAT 95–97; BMI 35.3
--- NOTE | 2024-10-06 16:54 | ED_ITS ---
Discharge Plan Disposition Patient Disposition: Home, Self-Care Condition: Good Prescriptions Prescriptions: New potassium chloride 20 mEq tablet,ER particles/crystals 20 meq PO BID Qty: 60 0RF No Action cetirizine 10 mg tablet 10 mg PO DAILY Patient Comments: TAKE 1 TABLET BY MOUTH ONCE DAILY Stiolto Respimat 2.5-2.5 mcg/actuation mist 2 puff inhalation DAILY 90 Days Qty: 4 2RF metformin 1,000 mg tablet 1,000 mg PO BID Qty: 180 3RF (DME) blood-glucose meter [ReliOn Micro Glucose Monitor] kit See Dose Instructions .ROUTE .MEDSUPPLY Qty: 1 Rx Instructions: As directed ascorbic acid (vitamin C) 1,000 mg tablet 1 g PO Q6H hydralazine 25 mg tablet 25 mg PO DAILY Qty: 90 3RF ciprofloxacin-dexamethasone 0.3-0.1 % drops,suspension 4 drp Ear-Left BID 7 Days Qty: 7.5 0RF cholecalciferol (vitamin D3) 1,250 mcg (50,000 unit) capsule 1,250 mcg PO WEEKLY Qty: 12 3RF mecobalamin (vitamin B12) 1,000 mcg tablet,chewable 1,000 mcg PO DAILY Qty: 90 3RF coQ10 (ubiquinol) [Qunol Judd CoQ10] 100 mg capsule 100 mg PO BID Qty: 180 3RF magnesium oxide 500 mg capsule 500 mg PO DAILY Qty: 30 0RF atorvastatin 40 mg tablet 40 mg PO HS Qty: 90 3RF Referrals Follow up/Referrals: Yessenia Ball APRN [Primary Care Provider] - See instructions Activity Restrictions/Add. Instructions Additional Instructions/Restrictions: Follow-up with your PCP within 48 hours for recheck of your potassium. I have sent in a prescription for potassium to your pharmacy. Please take 20 mill equivalents twice a day. If you have any continued new or worsening signs or symptoms follow-up with your PCP sooner or return to the ER as needed. Clinical Impressions Clinical Impression: Hypokalemia Print Language Print Language: [place] Discharge ED Provider: Yasmani Ortiz General Adult HPI <STEFANIE Lim - Last Filed: 10/06/24 19:07> General Chief complaint: Recheck/Abnormal Lab/Rx Stated complaint: sent by demetrius Mckeon Time Seen by Provider: 10/06/24 16:54 History of Present Illness HPI narrative: Patient presents for evaluation of low potassium. Patient had routine follow-up with her PCP and labs were done. She was notified later this afternoon that she had a low potassium and to come to the emergency department for evaluation. Patient denies any symptoms she denies any muscle cramps palpitations chest pain shortness of breath fever chills hemoptysis hematochezia melena nausea vomiting diarrhea. Of note patient has had a history of hypokalemia previously and was taking potassium and magnesium however was told to discontinue that for unknown reasons. Related Data Home Medications ?Medication ?Instructions ?Recorded ?Confirmed ascorbic acid (vitamin C) 1,000 mg 1 g PO Q6H 01/23/18 10/06/24 tablet blood-glucose meter (Message Bus Micro #1 ea 01/23/18 10/06/24 Glucose Monitor kit) cetirizine 10 mg tablet 10 mg PO DAILY 10/07/23 10/06/24 Previous Rx's ?Medication ?Instructions ?Recorded cholecalciferol (vitamin D3) 1,250 1,250 mcg PO WEEKLY #12 caps 10/09/23 mcg (50,000 unit) capsule coQ10 (ubiquinol) 100 mg capsule 100 mg PO BID #180 caps 10/09/23 (Qunol Judd CoQ10) mecobalamin (vitamin B12) 1,000 1,000 mcg PO DAILY #90 tabs 10/09/23 mcg chewable tablet metformin 1,000 mg tablet 1,000 mg PO BID #180 tabs 11/18/23 magnesium oxide 500 mg capsule 500 mg PO DAILY #30 caps 01/07/24 atorvastatin 40 mg tablet 40 mg PO HS #90 tabs 01/08/24 tiotropium 2.5 mcg-olodaterol 2.5 2 puff inhalation DAILY 90 days #4 02/10/24 mcg/actuation mist for inhalation grams (Stiolto Respimat) ciprofloxacin 0.3 %-dexamethasone 4 drp Ear-Left BID 7 days #7.5 mL 02/26/24 0.1 % ear drops,suspension hydralazine 25 mg tablet 25 mg PO DAILY #90 tabs 04/22/24 potassium chloride 20 mEq 20 meq PO BID #60 tabs 10/06/24 tablet,extended release(part/cryst) Allergies Allergy/AdvReac Type Severity Reaction Status Date / Time clarithromycin (From AXIN) Allergy Unknown Verified 10/06/24 11:14 morphine (MORPHINE) Allergy Unknown Verified 10/06/24 11:14 Penicillins (PENICILLINS) Allergy Unknown Verified 10/06/24 11:14 propoxyphene (From DARVON) Allergy Unknown Verified 10/06/24 11:14 PFSH <STEFANIE Lim - Last Filed: 10/06/24 19:07> [facility] Disclaimer: The information contained in this section may have been updated after the patient was seen, as this information can be updated by other users. Medical History (Updated 10/06/24 @ 18:10 by STEFANIE Lim) Establishing care with new doctor, encounter for Left ear pain Otorrhea, left ear Perforation of left tympanic membrane Acute left otitis media History of tumor COPD mixed type Multiple lung nodules on CT Smoking greater than 30 pack years Oral thrush Left otitis externa Amputation of fifth toe of left foot T2DM (type 2 diabetes mellitus) Surgical History History of cholecystectomy History of tonsillectomy and adenoidectomy History of placement of ear tubes History of skin graft H/O melanoma excision Family History Other Asthma Cancer Dementia Diabetes Hyperlipidemia Social History Smoking Status: Current every day smoker tobacco type: cigarettes packs per day: 1 alcohol intake: never substance use type: denies use current occupational status: disabled Travel in the last 8 weeks?: None marital status: number of children: 4 Other Medical History Have you received the Flu Vaccine for this season: No Have you received the Pneumonia Vaccine: Yes <STEFANIE Lim - Last Filed: 10/06/24 19:07> ROS Obtained: Yes Systems reviewed as appropriate & no additional complaints except as documented Physical Exam <STEFANIE Lim - Last Filed: 10/06/24 19:07> General General appearance: alert Respiratory Respiratory exam: Present normal lung sounds bilaterally Cardiovascular Cardiovascular exam: Present regular rate Neurological Exam Neurological exam: Present alert and oriented X3 Medical Decision Making <STEFANIE Lim - Last Filed: 10/06/24 19:07> Medical Records Medical records reviewed: Yes I reviewed the patient's medical records. Screening: Per USPSTF and CDC recommendations, given the prevalence of disease in our region, it is our hospital?s policy to screen for HIV and viral Hepatitis for all patients aged 18 and over and those with ongoing risk factors. Mark Inquiry Pt receiving controlled substance: No Vital Signs: 10/06/24 16:56 10/06/24 17:00 10/06/24 17:03 Temperature Temperature Source Pulse Rate 113 H 103 H 106 H Pulse Rate [Right] Respiratory Rate 21 20 20 Blood Pressure 149/88 H 156/103 H 151/87 H Blood Pressure [Right Arm] Blood Pressure Mean 102 109 110 Blood Pressure Mean [Right Arm] Blood Pressure Source [Right Arm] Blood Pressure Position [Right Arm] 02 Sat by Pulse Oximetry 97 95 95 Oxygen Delivery Method 10/06/24 17:04 10/06/24 17:30 10/06/24 18:00 Temperature 99.1 F Temperature Source Oral Pulse Rate Pulse Rate [Right] 99 H Respiratory Rate 20 24 24 Blood Pressure 152/81 H 153/86 H Blood Pressure [Right Arm] 169/88 H Blood Pressure Mean Blood Pressure Mean [Right Arm] 115 Blood Pressure Source [Right Arm] Automatic Cuff Blood Pressure Position [Right Arm] Sitting 02 Sat by Pulse Oximetry 96 Oxygen Delivery Method Room Air Lab Data Lab results reviewed: Yes I reviewed the patient's lab results. Lab Results 10/06/24 17:04: Sodium 133 L, Potassium 2.3 L*, Chloride 99, Carbon Dioxide 31 H , Anion Gap 5.3, BUN 6 L, Creatinine 0.60, Estimated Creat Clear 75, Estimated GFR 100, Est GFR ( Amer) 121, Glucose 196 H, Calcium 8.8, Phosphorus 3.1, Magnesium 1.3 L, HIV Ag/Ab Combo Qual Negative 10/06/24 17:04 Orders (Tests/Meds): ED MEDICATIONS Discontinued Medications Generic Name Dose Route Start Last Admin Trade Name Freq PRN Reason Stop Dose Admin Potassium Chloride/Water 100 mls @ 100 mls/hr 10/06/24 16:58 10/06/24 18:27 Potassium Chloride 10meq/100ml Ivpb IV 10/06/24 18:57 100 mls/hr Q1H BULMARO Administration Lactated Ringer's 1,000 mls @ 999 mls/hr 10/06/24 17:09 10/06/24 17:20 Lactated Ringer's 1000 Ml Bag IV 10/06/24 18:09 999 mls/hr .Q1H1M ONE Administration Magnesium Oxide 800 mg 10/06/24 18:00 10/06/24 18:29 Magnesium Oxide 400mg Tablet PO 10/06/24 18:01 800 mg ONCE ONE Administration Potassium Chloride 60 meq 10/06/24 16:56 10/06/24 17:08 Potassium Chloride 20meq Tab PO 10/06/24 16:57 60 meq ONCE ONE Administration ORDERS Category Date Time Status BMP [Basic Metabolic Panel] Stat Lab 10/06/24 17:04 Completed HIV Combo Stat Lab 10/06/24 17:04 Completed Magnesium Stat Lab 10/06/24 17:04 Completed Phosphorous Stat Lab 10/06/24 17:04 Completed Medical Decision Narrative: In summary patient is a 63-year-old female who presents to the emergency department for evaluation of hypokalemia. Patient is hemodynamically stable with a blood pressure 149/88 tachycardic at 113 with sinus tachycardia the bedside monitor breathing 21 times a minute satting at 97% on room air upon arrival, temperature of 99.1. Physical exam is remarkable for well-nourished well-developed 63-year-old female who otherwise is in no acute distress. Breath sounds clear equal bilateral to the base with adventitious sounds [place] Coma Score 15 abdomen soft nontender no rebound or guarding no rigidity. Patient has no muscle cramps. She has full range of motion is neurovascularly intact in all 4 extremities. Differential diagnosis includes hypokalemia versus other electrolyte abnormality versus renal failure etc. Initial workup will be conducted with hematologic labs twelve-lead EKG. Initial interventions include crystalloid bolus p.o. and IV potassium repletion pending lab results initial workup reviewed by me shows indeed that the patient is hypokalemic with a potassium of 2.3 sodium of 133 CO2 of 31 BUN of 6 creatinine of 0.6 glucose of 196 magnesium is 1.3. Given that we are going to give 1 dose of p.o. potassium 1 run of IV potassium replete her magnesium IV. Upon repeat evaluation patient's heart rates come down to 99 and she remains asymptomatic. Given this patient is appropriate for discharge with a prescription for potassium 20 mill equivalents twice daily and follow-up with her PCP within 48 hours for recheck of her potassium and strict return precautions. <Yasmani Ortiz MD - Last Filed: 10/06/24 19:26> Vital Signs: 10/06/24 16:56 10/06/24 17:00 10/06/24 17:03 Temperature Temperature Source Pulse Rate 113 H 103 H 106 H Pulse Rate [Right] Respiratory Rate 21 20 20 Blood Pressure 149/88 H 156/103 H 151/87 H Blood Pressure [Right Arm] Blood Pressure Mean 102 109 110 Blood Pressure Mean [Right Arm] Blood Pressure Source [Right Arm] Blood Pressure Position [Right Arm] 02 Sat by Pulse Oximetry 97 95 95 Oxygen Delivery Method 10/06/24 17:04 10/06/24 17:30 10/06/24 18:00 Temperature 99.1 F Temperature Source Oral Pulse Rate Pulse Rate [Right] 99 H Respiratory Rate 20 24 24 Blood Pressure 152/81 H 153/86 H Blood Pressure [Right Arm] 169/88 H Blood Pressure Mean Blood Pressure Mean [Right Arm] 115 Blood Pressure Source [Right Arm] Automatic Cuff Blood Pressure Position [Right Arm] Sitting 02 Sat by Pulse Oximetry 96 Oxygen Delivery Method Room Air Lab Data Lab Results 10/06/24 17:04: Sodium 133 L, Potassium 2.3 L*, Chloride 99, Carbon Dioxide 31 H , Anion Gap 5.3, BUN 6 L, Creatinine 0.60, Estimated Creat Clear 75, Estimated GFR 100, Est GFR ( Amer) 121, Glucose 196 H, Calcium 8.8, Phosphorus 3.1, Magnesium 1.3 L, HIV Ag/Ab Combo Qual Negative Orders (Tests/Meds): ED MEDICATIONS Discontinued Medications Generic Name Dose Route Start Last Admin Trade Name Freq PRN Reason Stop Dose Admin Potassium Chloride/Water 100 mls @ 100 mls/hr 10/06/24 16:58 10/06/24 18:27 Potassium Chloride 10meq/100ml Ivpb IV 10/06/24 18:57 100 mls/hr Q1H BULMARO Administration Lactated Ringer's 1,000 mls @ 999 mls/hr 10/06/24 17:09 10/06/24 17:20 Lactated Ringer's 1000 Ml Bag IV 10/06/24 18:09 999 mls/hr .Q1H1M ONE Administration Magnesium Oxide 800 mg 10/06/24 18:00 10/06/24 18:29 Magnesium Oxide 400mg Tablet PO 10/06/24 18:01 800 mg ONCE ONE Administration Potassium Chloride 60 meq 10/06/24 16:56 10/06/24 17:08 Potassium Chloride 20meq Tab PO 10/06/24 16:57 60 meq ONCE ONE Administration ORDERS Category Date Time Status BMP [Basic Metabolic Panel] Stat Lab 10/06/24 17:04 Completed HIV Combo Stat Lab 10/06/24 17:04 Completed Magnesium Stat Lab 10/06/24 17:04 Completed Phosphorous Stat Lab 10/06/24 17:04 Completed ECG Data Tracing #1: I reviewed this ECG and interpreted as documented below: (Sinus tachycardia 111 bpm with [place] 150, QRS 95, QTc 380. Nonspecific ST and T wave changes with no reciprocal elevations. Borderline leftward axis) Medical Decision Narrative: In summary patient is a 63-year-old female who presents to the emergency department for evaluation of hypokalemia. Patient is hemodynamically stable with a blood pressure 149/88 tachycardic at 113 with sinus tachycardia the bedside monitor breathing 21 times a minute satting at 97% on room air upon arrival, temperature of 99.1. Physical exam is remarkable for well-nourished well-developed 63-year-old female who otherwise is in no acute distress. Breath sounds clear equal bilateral to the base with adventitious sounds [place] Coma Score 15 abdomen soft nontender no rebound or guarding no rigidity. Patient has no muscle cramps. She has full range of motion is neurovascularly intact in all 4 extremities. Differential diagnosis includes hypokalemia versus other electrolyte abnormality versus renal failure etc. Initial workup will be conducted with hematologic labs twelve-lead EKG. Initial interventions include crystalloid bolus p.o. and IV potassium repletion pending lab results initial workup reviewed by me shows indeed that the patient is hypokalemic with a potassium of 2.3 sodium of 133 CO2 of 31 BUN of 6 creatinine of 0.6 glucose of 196 magnesium is 1.3. Given that we are going to give 1 dose of p.o. potassium 1 run of IV potassium replete her magnesium IV. Upon repeat evaluation patient's heart rates come down to 99 and she remains asymptomatic. Given this patient is appropriate for discharge with a prescription for potassium 20 mill equivalents twice daily and follow-up with her PCP within 48 hours for recheck of her potassium and strict return precautions. I was consulted by the SAAD, and we discussed the complexity of the problems being addressed. I approved the treatment and management plan for this patient's care in the Emergency Department, thus performing a substantive portion of the medical decision making. Yasmani Ortiz MD Critical Care <STEFANIE Lim - Last Filed: 10/06/24 19:07> Critical Care Time Critical Care Time: Yes Attestation: On 10/06/24, the high probability of a clinically significant, sudden or life threatening deterioration of the following system(s) required my full and direct attention, intervention and personal management. The time I documented below is in addition to time spent performing reported procedures but includes the following listed in this critical care notation. Total Time Total Critical Care Time: 35
--- NOTE | 2024-10-06 16:55 | ECG_ITS ---
APPROVED REPORT Exam: Resting ECG HR:111 bpm ECG Measurements Heart Rate 111 AXES NE 150 P 64 QRSd 95 QRS -13 QT 315 T -60 QTc 380 Conclusion Sinus tachycardia Old Q waves, no acute ischemic change Electronically signed by : NIRMALA CONKLIN, 10/06/2024 23:10:39
[2024-10-06] MEDS: POTASSIUM CHLORIDE 20MEQ TAB 60 MEQ PO (17:08)
[2024-10-06] MEDS: KCl 10mEq/100ml 100 ML 100 MEQ IV ×2 (17:09→18:27)
[2024-10-06] MEDS: LACTATED RINGERS 1000ML 1,000 ML 999 ML IV (17:20)
[2024-10-06 17:28] LABS: Anion Gap 5.3 mEq/L (5-15); Blood Urea Nitrogen 6 mg/dl (7-17); Calcium 8.8 mg/dl (8.4-10.2); Carbon Dioxide 31 mmol/L (22.0-30.0); Chloride 99 mmol/L (98-107); Creatinine Clearance Estimated 75 mL/min (50-200); Estimated Glomerular Filt Rate 100 ml/min (>60); GFR (African American) 121 ML/MIN (>60); Glucose 196 mg/dl (74-100); Magnesium 1.3 mg/dl (1.6-2.3); Phosphorous 3.1 mg/dl (2.5-4.5); Sodium 133 mmol/L (136-145)
[2024-10-06 17:42] LABS: Potassium 2.3 mmoL/L (3.5-5.1)
[2024-10-06 18:13] LABS: HIV Combo NEGATIVE (Negative)
[2024-10-06] MEDS: MAGNESIUM OXIDE 400MG TABLET 800 MG PO (18:29)
--- NOTE | 2024-10-06 19:34 | PC.NURSE ---
ED provider at the bedside updating pt on POC.
== END 2024-10-06 20:03 | disposition home or self-care (01) ==
PROVIDERS: Physician Assistant; Emergency Provider Emergency Medicine; PCP Nurse Practitioner Family
DX: E87.6 Hypokalemia (principal); R00.0 Tachycardia, unspecified; E83.42 Hypomagnesemia; Z11.4 Encounter for screening for human immunodeficiency virus [HIV]
CPT/HCPCS: 80048; 83735; 84100; 87389; 93005; 96361; 96365; 96366; 99291; J3480; J7120

== ENCOUNTER 2024-10-06 16:58 | Outpatient (CLI) | payer MEDICARE, SELFPAY ==
[2024-10-06 13:51] LABS: Basophils # 0.1 K/mm3 (0-0.2); Eosinophils # 0.5 Kmm3 (0.0-0.4); Eosinophils % 4.1 % (0.1-12.0); Hematocrit 45.4 % (37.0-47.0); Hemoglobin 15.7 g/dL (12.2-16.2); Immature Granulocytes # 0.03 10^3uL; Immature Granulocytes % 0.2 %; Lymphocytes # 3.1 K/mm3 (0.7-4.5); Lymphocytes % 24.9 % (10-50); Mean Corpuscular HGB Conc 34.6 g/dL (31.8-35.4); Mean Corpuscular Hemoglobin 31.5 pg (27.0-31.2); Mean Corpuscular Volume 91.2 fl (81-99); Mean Platelet Volume 11.9 fl (7.4-10.4); Monocytes # 0.8 K/mm3 (0.1-1.0); Monocytes % 6.1 % (1.7-9.3); Neutrophils % 63.7 % (37.0-80.0); Nucleated Red Blood Cells # 0 10^3/uL; Nucleated Red Blood Cells % 0 %; Platelet Count 407 K/mm3 (142-424); Red Blood Count 4.98 M/mm3 (4.20-5.40); Red Cell Distribution Width 13.3 % (11.5-17.5); Red Cell Distribution Width-SD 44.9 fL; White Blood Count 12.6 K/mm3 (4.8-10.8)
[2024-10-06 14:24] LABS: Alanine Aminotransferase 23 U/L (12-78); Albumin Level 4.5 g/dl (3.5-5.0); Albumin/Globulin Ratio 1.9 (1.1-1.8); Alkaline Phosphatase 98 U/L (38-126); Anion Gap 11.5 mEq/L (5-15); Aspartate Amino Transferase 31 U/L (14-36); Bilirubin,Total 1.1 mg/dl (0.2-1.3); Blood Urea Nitrogen 5 mg/dl (7-17); Calcium 9.6 mg/dl (8.4-10.2); Carbon Dioxide 32 mmol/L (22.0-30.0); Chloride 99 mmol/L (98-107); Chol/HDL Ratio 2.4 (1-3.5); Cholesterol 127 mg/dl (140-200); Estimated Glomerular Filt Rate 100 ml/min (>60); GFR (African American) 121 ML/MIN (>60); Globulin 2.4 g/dL (1.3-3.2); Glucose 186 mg/dl (74-100); HDL Cholesterol 52 mg/dl (40-60); Sodium 140 mmol/L (136-145); Total Protein,Serum 6.9 g/dl (6.3-8.2); Triglycerides 190 mg/dl (30-150); VLDL Cholesterol 38 mg/dL (0-40)
[2024-10-06 14:35] LABS: Direct LDL Cholesterol 42.96 mg/dL (100-129)
[2024-10-06 14:40] LABS: 25-OH Vitamin D, Total 51.7 ng/mL (30-100)
[2024-10-06 14:43] LABS: Free T4 (Free Thyroxine) 1.15 ng/dl (0.78-2.19)
[2024-10-06 14:55] LABS: Potassium 2.5 mmoL/L (3.5-5.1)
[2024-10-06 14:58] LABS: Thyroid Stimulating Hormone 3.44 uIU/mL (0.465-4.68)
[2024-10-06 16:02] LABS: Vitamin B12 > 1000 pg/mL (239-931)
[2024-10-06 16:06] LABS: Hemoglobin A1C 8.1 % (4.0-6.0)
[2024-10-06 20:24] LABS: Iron 114 ug/dL (37-170)
[2024-10-06 20:34] LABS: Total Iron Binding Capacity 354 ug/dL (265-497)
[2024-10-06 21:02] LABS: Ferritin 49.8 ng/ml (11.1-264)
== END 2024-10-06 23:59 | disposition home or self-care (01) ==
LOC: LAB.DROPOF 16:59
PROVIDERS: PCP Nurse Practitioner Family; Visit Provider Nurse Practitioner Family
DX: E78.5 Hyperlipidemia, unspecified (principal); R41.3 Other amnesia; I10 Essential (primary) hypertension; R91.8 Other nonspecific abnormal finding of lung field; F17.210 Nicotine dependence, cigarettes, uncomplicated; R32 Unspecified urinary incontinence; R15.9 Full incontinence of feces; J44.9 Chronic obstructive pulmonary disease, unspecified; E53.8 Deficiency of other specified B group vitamins; E83.42 Hypomagnesemia; L98.9 Disorder of the skin and subcutaneous tissue, unspecified; E11.9 Type 2 diabetes mellitus without complications; G47.33 Obstructive sleep apnea (adult) (pediatric); R53.83 Other fatigue
CPT/HCPCS: 80053; 80061; 82306; 82607; 82728; 83036; 83540; 83550; 84439; 84443; 85025

== ENCOUNTER 2024-12-04 20:32 | Observation (INO) | payer MEDICARE, SELFPAY ==
[2024-12-04] VITALS (10 sets, daily range): BP systolic 92–141; BP diastolic 48–73; PULSE 95–102; RESP 17–24; TEMP 36.7; O2SAT 94–99; BMI 23.8
--- NOTE | 2024-12-04 20:04 | XR_ITS ---
PROCEDURE INFORMATION: Exam: XR Chest Exam date and time: 12/04/2024 9:20 PM Age: 63 years old Clinical indication: Shortness of breath; Additional info: SOA TECHNIQUE: Imaging protocol: Radiologic exam of the chest. Views: 1 view. COMPARISON: CT LUNG SCREENING 11/04/2023 3:34 PM FINDINGS: Lungs: Stigmata of old granulomatous disease. Mild scarring and atelectasis in the lower lungs. Pleural spaces: Unremarkable. No pleural effusion. No pneumothorax. Heart/Mediastinum: Unremarkable. No cardiomegaly. Bones/joints: Unremarkable. IMPRESSION: No acute findings.
--- NOTE | 2024-12-04 20:04 | CT_ITS ---
PROCEDURE INFORMATION: Exam: CT Abdomen And Pelvis With Contrast Exam date and time: 12/04/2024 9:18 PM Age: 63 years old Clinical indication: Abdominal pain; Additional info: Abd pain luq TECHNIQUE: Imaging protocol: Computed tomography of the abdomen and pelvis with contrast. Radiation optimization: All CT scans at this facility use at least one of these dose optimization techniques: automated exposure control; mA and/or kV adjustment per patient size (includes targeted exams where dose is matched to clinical indication); or iterative reconstruction. Contrast material: ISOVUE; Contrast volume: 75 ml; Contrast route: IV; COMPARISON: CT LUNG SCREENING 11/04/2023 3:34 PM FINDINGS: Coronary arteries: Coronary artery calcifications. Liver: Low attenuation hepatic lesions measuring up to 1.7 cm in diameter are incompletely characterized, but are likely cysts. No followup imaging is recommended. Gallbladder and biliary ducts: Gallbladder is absent. Pancreas: Normal. No ductal dilation. Spleen: Normal. No splenomegaly. Adrenal glands: Normal. No mass. Kidneys and ureters: Low attenuation renal lesions measuring up to 4.3 cm in diameter are incompletely characterized, but are likely cysts. No followup imaging is warranted. Duplex kidneys. Stomach and bowel: Nonspecific bowel wall thickening of portions of stomach, small bowel, and colon. Appendix: Unremarkable appendix. Intraperitoneal space: Unremarkable. No free air. No significant fluid collection. Vasculature: The arteries demonstrate severe atherosclerotic disease. Lymph nodes: Unremarkable. No enlarged lymph nodes. Urinary bladder: Unremarkable as visualized. Reproductive: Unremarkable as visualized. Bones/joints: Unremarkable. No acute fracture. Soft tissues: Focal edema in the right anterior abdominal wall on image 56 series 3. Small fat containing left inguinal hernia. Tiny fat containing umbilical hernia. IMPRESSION: 1. Nonspecific bowel wall thickening of portions of stomach, small bowel, and colon. Please correlate for evidence of GI tract inflammation/infection. 2. Focal edema in the right anterior abdominal wall on image 56 series 3. Please exclude cellulitis. COMMENTS: Consistent with the [employer]'s Incidental Findings Committee white paper (J Am Radha Radiol 2018): Any incidental renal lesion less than 1 cm or classified as too small to characterize, or any incidental cystic renal lesion characterized as simple-appearing, is likely benign. No follow-up imaging is recommended for these lesions per consensus recommendations based on imaging criteria.
--- NOTE | 2024-12-04 20:07 | HMH.EDGENADL ---
Discharge Plan Disposition Patient Disposition: Admitted Clinical Impressions Clinical Impression: Sepsis Discharge ED Provider: Cullen Gomez General Adult HPI <Lulu Bryant APRN - Last Filed: 12/04/24 22:33> General Chief complaint: Abdominal Pain Stated complaint: AMS Time Seen by Provider: 12/04/24 20:34 History of Present Illness HPI narrative: patient is a 63-year-old female PMHx HTN, COPD, current tobacco smoker, HLD, diabetes, fibromyalgia who presents to the ED via EMS after syncopal episode at home. Patient reports she has been feeling bad over the past several days, sat down to have a bowel movement today when she had a syncopal episode, vomited multiple times. Related Data Home Medications ?Medication ?Instructions ?Recorded ?Confirmed ascorbic acid (vitamin C) 1,000 mg 1 g PO DAILY 01/23/18 12/05/24 tablet blood-glucose meter (ReliOn Micro #1 ea 01/23/18 10/06/24 Glucose Monitor kit) cetirizine 10 mg tablet 10 mg PO DAILY 10/07/23 12/05/24 atorvastatin 40 mg tablet 40 mg PO DAILY 12/05/24 12/05/24 cholecalciferol (vitamin D3) 1,250 1,250 mcg PO DAILY 12/05/24 12/05/24 mcg (50,000 unit) capsule coQ10 (ubiquinol) 100 mg capsule 100 mg PO DAILY 12/05/24 12/05/24 (Qunol Judd CoQ10) Previous Rx's ?Medication ?Instructions ?Recorded metformin 1,000 mg tablet 1,000 mg PO BID #180 tabs 11/18/23 magnesium oxide 500 mg capsule 500 mg PO DAILY #30 caps 01/07/24 hydralazine 25 mg tablet 25 mg PO DAILY #90 tabs 04/22/24 potassium chloride 20 mEq 20 meq PO BID #60 tabs 10/06/24 tablet,extended release(part/cryst) Allergies Allergy/AdvReac Type Severity Reaction Status Date / Time clarithromycin (From BIAXIN) Allergy Unknown Verified 10/06/24 11:14 morphine (MORPHINE) Allergy Unknown Verified 10/06/24 11:14 Penicillins (PENICILLINS) Allergy Unknown Verified 10/06/24 11:14 propoxyphene (From DARVON) Allergy Unknown Verified 10/06/24 11:14 PFSH <Lulu Bryant APRN - Last Filed: 12/04/24 22:33> [facility] Disclaimer: The information contained in this section may have been updated after the patient was seen, as this information can be updated by other users. Medical History Establishing care with new doctor, encounter for Left ear pain Otorrhea, left ear Perforation of left tympanic membrane Acute left otitis media History of tumor COPD mixed type Multiple lung nodules on CT Smoking greater than 30 pack years Oral thrush Left otitis externa Amputation of fifth toe of left foot T2DM (type 2 diabetes mellitus) Surgical History History of cholecystectomy History of tonsillectomy and adenoidectomy History of placement of ear tubes History of skin graft H/O melanoma excision Family History Other Asthma Cancer Dementia Diabetes Hyperlipidemia Social History Smoking Status: Unknown if ever smoked alcohol intake: never substance use type: denies use current occupational status: disabled Travel in the last 8 weeks?: None marital status: number of children: 4 Have you lived/traveled outside [place] in past 30 days?: No Contact w/someone who lives/traveled outside US past 30 days?: No Exposure to someone with infectious disease in past 14 days?: No Do you have a fever (greater than 100.4 F or 38 C)?: No Have you tested positive for COVID-19?: No Exposed to someone with COVID-19 in past 14 days?: No Do you have a sore throat?: No Do you have a cough?: No Do you have any weakness?: No Do you have any diarrhea?: No Are you experiencing any unusual bleeding?: No Do you have any muscle aches/pain?: No Do you have any abdominal pain?: No Are you experiencing loss of taste or smell?: No Other Medical History Have you received the Flu Vaccine for this season: No Have you received the Pneumonia Vaccine: Yes <Lulu Bryant APRN - Last Filed: 12/04/24 22:33> ROS Obtained: Yes Systems reviewed as appropriate & no additional complaints except as documented Physical Exam <Lulu Bryant APRN - Last Filed: 12/04/24 22:33> General General appearance: alert Comment: Lethargic, dried vomit on face, neck and chest Neck Neck exam: Present full ROM Chest Chest inspection: Present normal inspection Respiratory Respiratory exam: Present normal lung sounds bilaterally Cardiovascular Cardiovascular exam: Present tachycardia Abdominal Exam Abdominal exam: Present soft and tenderness (Generalized tenderness) Neurological Exam Neurological exam: Present alert and oriented X3 Skin Skin exam: Present warm Medical Decision Making <Luul Bryant APRN - Last Filed: 12/04/24 22:33> Medical Records Screening: Per USPSTF and CDC recommendations, given the prevalence of disease in our region, it is our hospital?s policy to screen for HIV and viral Hepatitis for all patients aged 18 and over and those with ongoing risk factors. Mark Inquiry Pt receiving controlled substance: No Vital Signs: 12/04/24 20:18 12/04/24 20:45 12/04/24 21:00 Temperature 98.0 F Temperature Source Oral Pulse Rate 100 H 98 H Pulse Rate [Apical] 98 H Respiratory Rate 18 21 21 Blood Pressure 141/69 H 131/73 Blood Pressure [Right Arm] 92/48 L Blood Pressure Mean 93 92 Blood Pressure Mean [Right Arm] 62 Blood Pressure Source Blood Pressure Source [Right Arm] Automatic Cuff Blood Pressure Position Blood Pressure Position [Right Arm] Sitting 02 Sat by Pulse Oximetry 97 99 98 Oxygen Delivery Method Room Air 12/04/24 21:30 12/04/24 22:00 12/04/24 22:30 Temperature Temperature Source Pulse Rate 99 H 98 H 102 H Pulse Rate [Apical] Respiratory Rate 19 21 19 Blood Pressure 118/67 111/64 112/71 Blood Pressure [Right Arm] Blood Pressure Mean 84 76 78 Blood Pressure Mean [Right Arm] Blood Pressure Source Blood Pressure Source [Right Arm] Blood Pressure Position Blood Pressure Position [Right Arm] 02 Sat by Pulse Oximetry 95 95 94 L Oxygen Delivery Method 12/04/24 22:55 12/04/24 23:53 Temperature 98.0 F Temperature Source Oral Pulse Rate 96 H Pulse Rate [Apical] Respiratory Rate 18 Blood Pressure 118/67 Blood Pressure [Right Arm] Blood Pressure Mean Blood Pressure Mean [Right Arm] Blood Pressure Source Automatic Cuff Blood Pressure Source [Right Arm] Blood Pressure Position Sitting Blood Pressure Position [Right Arm] 02 Sat by Pulse Oximetry Oxygen Delivery Method Room Air Room Air Lab Data Lab Results 12/04/24 20:03: WBC 12.9 H, RBC 4.85, Hgb 15.3, Hct 44.7, MCV 92.2, MCH 31.5 H, MCHC 34.2, RDW 13.2, Plt Count 237, MPV 11.6 H, Neut % (Auto) 56.4, Lymph % (Auto) 36.3, [place] % (Auto) 5.7, Eos % (Auto) 0.8, Baso % (Auto) 0.5, Neut # (Auto) 7.3, Lymph # (Auto) 4.7 H, [place] # (Auto) 0.7, Eos # (Auto) 0.1, Baso # (Auto) 0.1, VBG pH 7.36, VBG pCO2 39.0, VBG pO2 51.6 H, VBG HCO3 21.3 L, VBG Total CO2 22.5 L, VBG O2 Saturation 87.4 H, VBG Base Excess -4.2 L, VBG Lactic Acid 8.9 H, Sodium 130 L, Potassium 4.3, Chloride 90 L, Carbon Dioxide 20 L, Anion Gap 24.3 H, BUN 6 L, Creatinine 0.80, Estimated Creat Clear 52, Estimated GFR 72, Est GFR ( Amer) 87, Glucose 151 H, Calcium 10.2, Total Bilirubin 0.9, AST 53 H, ALT 29, Alkaline Phosphatase 122, Troponin I < 0.01, Total Protein 7.2, Albumin 4.5, Globulin 2.7, Albumin/Globulin Ratio 1.7, Plasma/Serum Alcohol < 10, Acetone Level None detected 12/04/24 20:40: Urine Color Yellow, Urine Appearance Clear, Urine pH 6.0, Ur Specific [place] 1.010, Urine Protein Negative, Urine Glucose (UA) Negative, Urine Ketones Negative, Urine Blood Negative, Urine Nitrate Negative, Urine Bilirubin Negative, Urine Urobilinogen 0.2, Ur Leukocyte Esterase 3+ A, Urine WBC 20-50, Ur Squamous Epith Cells 10-20, Urine Bacteria 3+, Hyaline Casts Occasional, Urine Opiates Screen Negative, Urine Methadone Screen Negative, Ur Barbituates Screen Negative, Ur Phencyclidine Scrn Negative, Ur Amphetamines Screen Negative, U Benzodiazepines Scrn Negative, Urine Cocaine Screen Negative, U Marijuana (THC) Screen Negative 12/04/24 22:15: Troponin I < 0.01 12/04/24 22:30: VBG pH 7.34, VBG pCO2 37.2, VBG pO2 45.1 H, VBG HCO3 19.7 L, VBG Total CO2 20.9 L, VBG O2 Saturation 82.6 H, VBG Base Excess -6.0 L, VBG Lactic Acid 4.8 H 12/04/24 20:03 12/04/24 20:03 Orders (Tests/Meds): ED MEDICATIONS Generic Name Dose Route Start Last Admin Trade Name Freq PRN Reason Stop Dose Admin Sodium Chloride 1,000 mls @ 75 mls/hr 12/04/24 23:00 12/05/24 00:13 Sod Chlor 0.9% 1000ml Bag IV 01/03/25 22:59 75 mls/hr .[id number] BULMARO Administration Miscellaneous 1 each 12/04/24 22:15 12/05/24 00:55 Vancomycin Consult Request NOTAPPLIC 01/03/25 22:14 Not Given CONSULT PHARMACY [facility] Discontinued Medications Generic Name Dose Route Start Last Admin Trade Name Freq PRN Reason Stop Dose Admin Acetaminophen 1,000 mg 12/04/24 22:22 12/04/24 22:38 Acetaminophen 1,000mg/100ml Vial IV 12/04/24 22:23 1,000 mg ONCE ONE Administration Sodium Chloride 1,000 mls @ 999 mls/hr 12/04/24 20:04 12/04/24 20:18 Sod Chlor 0.9% 1000ml Bag IV 12/04/24 21:04 999 mls/hr .Q1H1M ONE Administration Cefepime HCl 1 gm/ Sodium 50 mls @ 100 mls/hr 12/04/24 22:11 12/04/24 22:39 Chloride IV 12/04/24 22:12 100 mls/hr Q12H ONE Administration Vancomycin/PEG/NADA/Lysine/Water 1.5 gm in 300 mls @ 150 mls/hr 12/04/24 22:15 12/05/24 00:13 Vancomycin 1.5gm/300ml (Peg) Premix IV 12/05/24 00:14 150 mls/hr ONCE ONE Administration Iopamidol 75 ml 12/04/24 21:17 12/04/24 21:18 Iopamidol-370 (76%);100ml Bottle IV 12/04/24 21:18 75 ml ONCE ONE Administration Ondansetron HCl 4 mg 12/04/24 20:04 12/04/24 20:17 Ondansetron 4mg/2ml Vial IV 12/04/24 20:05 4 mg ONCE ONE Administration Sodium Chloride 10 ml 12/04/24 21:17 12/04/24 21:18 Sodium Chloride 0.9% 10ml Syr (Rad Only) IV 12/04/24 21:18 10 ml ONCE ONE Administration ORDERS Category Date Time Status CT abdomen pelvis w con Stat Cat Scan 12/04/24 20:[address] cervical spine wo con Stat Cat Scan 12/04/24 20:[address] head/brain wo con Stat Cat Scan 12/04/24 20:26 Completed CXR --portable [XR chest portable] Stat Exams 12/04/24 20:04 Completed Acetone, Serum (Rapid) Stat Lab 12/04/24 20:03 Completed Basic Metabolic Panel AMLAB Lab 12/05/24 06:00 Ordered CBC w/Auto Diff [Complete Blood Count Auto Diff] Stat Lab 12/04/24 20:03 Completed CMP [Comprehensive Metabolic Panel] Stat Lab 12/04/24 20:03 Completed Complete Blood Count Auto Diff AMLAB Lab 12/05/24 06:00 Ordered Ethyl Alcohol Stat Lab 12/04/24 20:03 Completed Trop I [Troponin I] Stat Lab 12/04/24 20:03 Completed Troponin I Q3H Lab 12/04/24 22:15 Completed Troponin I Q3H Lab 12/05/24 01:30 Completed UDS [Drug Screen,Urine] Stat Lab 12/04/24 20:40 Completed Urinalysis and Microscopic Stat Lab 12/04/24 20:40 Completed Blood Culture Stat Micro 12/04/24 21:00 Received Urine Culture Stat Micro 12/04/24 20:40 Received VBG [Venous Blood Gas] Stat RT 12/04/24 20:03 Completed VBG [Venous Blood Gas] Stat RT 12/04/24 22:30 Completed Medical Decision Narrative: In summary, patient is a 63-year-old female PMHx HTN, COPD, current tobacco smoker, HLD, diabetes, fibromyalgia who presents to the ED via EMS after syncopal episode at home. Patient reports she has been feeling bad over the past several days, sat down to have a bowel movement today when she had a syncopal episode, vomited multiple times. Patient is reporting left upper quadrant abdominal pain. EMS started IV fluids and route. Patient denies any recent falls or trauma. Denies headache. Upon initial evaluation, patient is alert, oriented and cooperating. She appears to be lethargic. She is hypotensive, MAP 59, tachycardic at 112, vomit noted all over her face and shirt. Left upper quadrant abdominal tenderness noted, abdomen is soft. Patient denies fever, chills, bodies, visual disturbances, chest pain, shortness of breath. Labs reviewed. CBC remarkable for leukocytosis, WBC 12.9, stable H&H. VBG remarkable for HCO3 21.3, CO2 22.5, lactic acid 8.9. serum alcohol < 10. CMP remarkable for sodium 130, anion gap 24.3, BUN 6, creatinine 0.80. Glucose 151. AST 53. Final read of the head CT unremarkable for any acute intracranial findings. Cervical spine CT no acute fracture or malalignment. CT scan of the abdomen pelvis remarkable for nonspecific bowel wall thickening portions of the stomach, small bowel and colon. Discussed with patient diagnosis of enterocolitis and syncope. Will start cefepime and Vanco. Discussed with patient she will be admitted to the hospital. Patient is agreeable to plan of care at this time. She remains hemodynamically stable in the ED <Cullen Gomze MD - Last Filed: 12/05/24 03:08> Vital Signs: 12/04/24 20:18 12/04/24 20:45 12/04/24 21:00 Temperature 98.0 F Temperature Source Oral Pulse Rate 100 H 98 H Pulse Rate [Apical] 98 H Respiratory Rate 18 21 21 Blood Pressure 141/69 H 131/73 Blood Pressure [Right Arm] 92/48 L Blood Pressure Mean 93 92 Blood Pressure Mean [Right Arm] 62 Blood Pressure Source Blood Pressure Source [Right Arm] Automatic Cuff Blood Pressure Position Blood Pressure Position [Right Arm] Sitting 02 Sat by Pulse Oximetry 97 99 98 Oxygen Delivery Method Room Air 12/04/24 21:30 12/04/24 22:00 12/04/24 22:30 Temperature Temperature Source Pulse Rate 99 H 98 H 102 H Pulse Rate [Apical] Respiratory Rate 19 21 19 Blood Pressure 118/67 111/64 112/71 Blood Pressure [Right Arm] Blood Pressure Mean 84 76 78 Blood Pressure Mean [Right Arm] Blood Pressure Source Blood Pressure Source [Right Arm] Blood Pressure Position Blood Pressure Position [Right Arm] 02 Sat by Pulse Oximetry 95 95 94 L Oxygen Delivery Method 12/04/24 22:55 12/04/24 23:53 Temperature 98.0 F Temperature Source Oral Pulse Rate 96 H Pulse Rate [Apical] Respiratory Rate 18 Blood Pressure 118/67 Blood Pressure [Right Arm] Blood Pressure Mean Blood Pressure Mean [Right Arm] Blood Pressure Source Automatic Cuff Blood Pressure Source [Right Arm] Blood Pressure Position Sitting Blood Pressure Position [Right Arm] 02 Sat by Pulse Oximetry Oxygen Delivery Method Room Air Room Air Lab Data Lab Results 12/04/24 20:03: WBC 12.9 H, RBC 4.85, Hgb 15.3, Hct 44.7, MCV 92.2, MCH 31.5 H, MCHC 34.2, RDW 13.2, Plt Count 237, MPV 11.6 H, Neut % (Auto) 56.4, Lymph % (Auto) 36.3, [place] % (Auto) 5.7, Eos % (Auto) 0.8, Baso % (Auto) 0.5, Neut # (Auto) 7.3, Lymph # (Auto) 4.7 H, [place] # (Auto) 0.7, Eos # (Auto) 0.1, Baso # (Auto) 0.1, VBG pH 7.36, VBG pCO2 39.0, VBG pO2 51.6 H, VBG HCO3 21.3 L, VBG Total CO2 22.5 L, VBG O2 Saturation 87.4 H, VBG Base Excess -4.2 L, VBG Lactic Acid 8.9 H, Sodium 130 L, Potassium 4.3, Chloride 90 L, Carbon Dioxide 20 L, Anion Gap 24.3 H, BUN 6 L, Creatinine 0.80, Estimated Creat Clear 52, Estimated GFR 72, Est GFR ( Amer) 87, Glucose 151 H, Calcium 10.2, Total Bilirubin 0.9, AST 53 H, ALT 29, Alkaline Phosphatase 122, Troponin I < 0.01, Total Protein 7.2, Albumin 4.5, Globulin 2.7, Albumin/Globulin Ratio 1.7, Plasma/Serum Alcohol < 10, Acetone Level None detected 12/04/24 20:40: Urine Color Yellow, Urine Appearance Clear, Urine pH 6.0, Ur Specific [place] 1.010, Urine Protein Negative, Urine Glucose (UA) Negative, Urine Ketones Negative, Urine Blood Negative, Urine Nitrate Negative, Urine Bilirubin Negative, Urine Urobilinogen 0.2, Ur Leukocyte Esterase 3+ A, Urine WBC 20-50, Ur Squamous Epith Cells 10-20, Urine Bacteria 3+, Hyaline Casts Occasional, Urine Opiates Screen Negative, Urine Methadone Screen Negative, Ur Barbituates Screen Negative, Ur Phencyclidine Scrn Negative, Ur Amphetamines Screen Negative, U Benzodiazepines Scrn Negative, Urine Cocaine Screen Negative, U Marijuana (THC) Screen Negative 12/04/24 22:15: Troponin I < 0.01 12/04/24 22:30: VBG pH 7.34, VBG pCO2 37.2, VBG pO2 45.1 H, VBG HCO3 19.7 L, VBG Total CO2 20.9 L, VBG O2 Saturation 82.6 H, VBG Base Excess -6.0 L, VBG Lactic Acid 4.8 H Orders (Tests/Meds): ED MEDICATIONS Generic Name Dose Route Start Last Admin Trade Name Freq PRN Reason Stop Dose Admin Sodium Chloride 1,000 mls @ 75 mls/hr 12/04/24 23:00 12/05/24 00:13 Sod Chlor 0.9% 1000ml Bag IV 01/03/25 22:59 75 mls/hr .[id number] BULMARO Administration Miscellaneous 1 each 12/04/24 22:15 12/05/24 00:55 Vancomycin Consult Request NOTAPPLIC 01/03/25 22:14 Not Given CONSULT PHARMACY [facility] Discontinued Medications Generic Name Dose Route Start Last Admin Trade Name Freq PRN Reason Stop Dose Admin Acetaminophen 1,000 mg 12/04/24 22:22 12/04/24 22:38 Acetaminophen 1,000mg/100ml Vial IV 12/04/24 22:23 1,000 mg ONCE ONE Administration Sodium Chloride 1,000 mls @ 999 mls/hr 12/04/24 20:04 12/04/24 20:18 Sod Chlor 0.9% 1000ml Bag IV 12/04/24 21:04 999 mls/hr .Q1H1M ONE Administration Cefepime HCl 1 gm/ Sodium 50 mls @ 100 mls/hr 12/04/24 22:11 12/04/24 22:39 Chloride IV 12/04/24 22:12 100 mls/hr Q12H ONE Administration Vancomycin/PEG/NADA/Lysine/Water 1.5 gm in 300 mls @ 150 mls/hr 12/04/24 22:15 12/05/24 00:13 Vancomycin 1.5gm/300ml (Peg) Premix IV 12/05/24 00:14 150 mls/hr ONCE ONE Administration Iopamidol 75 ml 12/04/24 21:17 12/04/24 21:18 Iopamidol-370 (76%);100ml Bottle IV 12/04/24 21:18 75 ml ONCE ONE Administration Ondansetron HCl 4 mg 12/04/24 20:04 12/04/24 20:17 Ondansetron 4mg/2ml Vial IV 12/04/24 20:05 4 mg ONCE ONE Administration Sodium Chloride 10 ml 12/04/24 21:17 12/04/24 21:18 Sodium Chloride 0.9% 10ml Syr (Rad Only) IV 12/04/24 21:18 10 ml ONCE ONE Administration ORDERS Category Date Time Status CT abdomen pelvis w con Stat Cat Scan 12/04/24 20:[address] cervical spine wo con Stat Cat Scan 12/04/24 20:[address] head/brain wo con Stat Cat Scan 12/04/24 20:26 Completed CXR --portable [XR chest portable] Stat Exams 12/04/24 20:04 Completed Acetone, Serum (Rapid) Stat Lab 12/04/24 20:03 Completed Basic Metabolic Panel AMLAB Lab 12/05/24 06:00 Ordered CBC w/Auto Diff [Complete Blood Count Auto Diff] Stat Lab 12/04/24 20:03 Completed CMP [Comprehensive Metabolic Panel] Stat Lab 12/04/24 20:03 Completed Complete Blood Count Auto Diff AMLAB Lab 12/05/24 06:00 Ordered Ethyl Alcohol Stat Lab 12/04/24 20:03 Completed Trop I [Troponin I] Stat Lab 12/04/24 20:03 Completed Troponin I Q3H Lab 12/04/24 22:15 Completed Troponin I Q3H Lab 12/05/24 01:30 Completed UDS [Drug Screen,Urine] Stat Lab 12/04/24 20:40 Completed Urinalysis and Microscopic Stat Lab 12/04/24 20:40 Completed Blood Culture Stat Micro 12/04/24 21:00 Received Urine Culture Stat Micro 12/04/24 20:40 Received VBG [Venous Blood Gas] Stat RT 12/04/24 20:03 Completed VBG [Venous Blood Gas] Stat RT 12/04/24 22:30 Completed Medical Decision Narrative: In summary, patient is a 63-year-old female PMHx HTN, COPD, current tobacco smoker, HLD, diabetes, fibromyalgia who presents to the ED via EMS after syncopal episode at home. Patient reports she has been feeling bad over the past several days, sat down to have a bowel movement today when she had a syncopal episode, vomited multiple times. Patient is reporting left upper quadrant abdominal pain. EMS started IV fluids and route. Patient denies any recent falls or trauma. Denies headache. Upon initial evaluation, patient is alert, oriented and cooperating. She appears to be lethargic. She is hypotensive, MAP 59, tachycardic at 112, vomit noted all over her face and shirt. Left upper quadrant abdominal tenderness noted, abdomen is soft. Patient denies fever, chills, bodies, visual disturbances, chest pain, shortness of breath. Labs reviewed. CBC remarkable for leukocytosis, WBC 12.9, stable H&H. VBG remarkable for HCO3 21.3, CO2 22.5, lactic acid 8.9. serum alcohol < 10. CMP remarkable for sodium 130, anion gap 24.3, BUN 6, creatinine 0.80. Glucose 151. AST 53. Final read of the head CT unremarkable for any acute intracranial findings. Cervical spine CT no acute fracture or malalignment. CT scan of the abdomen pelvis remarkable for nonspecific bowel wall thickening portions of the stomach, small bowel and colon. Discussed with patient diagnosis of enterocolitis and syncope. Will start cefepime and Vanco. Discussed with patient she will be admitted to the hospital. Patient is agreeable to plan of care at this time. She remains hemodynamically stable in the ED I was consulted by the SAAD, and we discussed the complexity of the problems being addressed. I approve the treatment and management plan for this patient's care in the emergency department, thus performing a substantive portion of the medical decision making. Cullen Gomez MD Critical Care <Lulu Bryant, WOOD DRILLING MACHINE OPERATOR - Last Filed: 12/04/24 22:33> Critical Care Time Critical Care Time: No
--- NOTE | 2024-12-04 20:09 | ECG_ITS ---
APPROVED REPORT Exam: Resting ECG HR:89 bpm ECG Measurements Heart Rate 89 AXES MS 141 P 73 QRSd 89 QRS 62 QT 378 T -71 QTc 425 Conclusion SINUS RHYTHM WITH OCCASIONAL VENTRICULAR PREMATURE COMPLEXES SEPTAL MYOCARDIAL INFARCTION , PROBABLY OLD [40+ ms Q WAVE IN V1/V2] MODERATE T-WAVE ABNORMALITY, CONSIDER INFERIOR ISCHEMIA [-0.1+ mV T-WAVE IN II/aVF] ABNORMAL ECG Electronically signed by : CATARINA GARRETT, 12/08/2024 08:45:54
[2024-12-04 20:10] LABS: Hematocrit 44.7 % (37.0-47.0); Hemoglobin 15.3 g/dL (12.2-16.2); Immature Granulocytes % 0.3 %; Mean Corpuscular HGB Conc 34.2 g/dL (31.8-35.4); Mean Corpuscular Hemoglobin 31.5 pg (27.0-31.2); Mean Corpuscular Volume 92.2 fl (81-99); Nucleated Red Blood Cells % 0 %; Platelet Count 237 K/mm3 (142-424); Red Blood Count 4.85 M/mm3 (4.20-5.40); Red Cell Distribution Width-SD 44.8 fL; White Blood Count 12.9 K/mm3 (4.8-10.8)
[2024-12-04 20:13] LABS: VBG HCO3 21.3 mmol/L (23-30); VBG PCO2 39.0 mmol/L (35-51); VBG PH 7.36 mmol/L (7.31-7.41); VBG PO2 51.6 mmol/L (28-40)
[2024-12-04 20:15] LABS: Lactate Venous 8.9 mmol/L (0.4-2.0)
[2024-12-04] MEDS: ONDANSETRON 4MG/2ML VIAL 4 MG IV (20:17)
[2024-12-04] MEDS: 0.9 % SODIUM CHLORIDE 1000ML 1,000 ML 999 ML IV (20:18)
--- NOTE | 2024-12-04 20:26 | CT_ITS ---
PROCEDURE INFORMATION: Exam: CT Head Without Contrast Exam date and time: 12/04/2024 9:13 PM Age: 63 years old Clinical indication: Injury or trauma; Fall; Additional info: Fall off toilet/syncope TECHNIQUE: Imaging protocol: Computed tomography of the head without contrast. Radiation optimization: All CT scans at this facility use at least one of these dose optimization techniques: automated exposure control; mA and/or kV adjustment per patient size (includes targeted exams where dose is matched to clinical indication); or iterative reconstruction. COMPARISON: MR HEAD/BRAIN WO/W CON 12/24/2023 1:11 PM FINDINGS: Brain: No acute intracranial hemorrhage, midline shift, or mass effect. Stable arachnoid cyst anterior to the left temporal lobe.Diffuse brain parenchymal volume loss. Mild hypodensities within the cerebral white matter most consistent with chronic small-vessel ischemic changes. Cerebral ventricles: No ventriculomegaly. Paranasal sinuses: Visualized sinuses are unremarkable. No fluid levels. Mastoid air cells: Left mastoid effusion. Bones: Unremarkable. No acute fracture. Soft tissues: Unremarkable. IMPRESSION: No acute intracranial findings.
--- NOTE | 2024-12-04 20:26 | CT_ITS ---
PROCEDURE INFORMATION: Exam: CT Cervical Spine Without Contrast Exam date and time: 12/04/2024 9:15 PM Age: 63 years old Clinical indication: Injury or trauma; Fall; Additional info: Syncope fall off toilet hit head TECHNIQUE: Imaging protocol: Computed tomography of the cervical spine without contrast. Radiation optimization: All CT scans at this facility use at least one of these dose optimization techniques: automated exposure control; mA and/or kV adjustment per patient size (includes targeted exams where dose is matched to clinical indication); or iterative reconstruction. COMPARISON: CT HEAD/BRAIN WO CON 12/04/2024 9:13 PM FINDINGS: Bones: Mild anterolisthesis of C4 over C5 and C5 over C6 likely related to facet arthropathy. Spinal cord: Arachnoid cyst in the left middle cranial fossa. Lungs: Lung apices are normal. Soft tissues: Unremarkable. IMPRESSION: No acute fracture or malalignment of the cervical spine.
[2024-12-04 20:30] LABS: Albumin Level 4.5 g/dl (3.5-5.0); Chloride 90 mmol/L (98-107)
[2024-12-04 20:31] LABS: Potassium 4.3 mmoL/L (3.5-5.1); Sodium 130 mmol/L (136-145)
[2024-12-04 20:33] LABS: Blood Urea Nitrogen 6 mg/dl (7-17); Creatinine Clearance Estimated 52 mL/min (50-200); Creatinine,Serum 0.80 mg/dl (0.52-1.04); Estimated Glomerular Filt Rate 72 ml/min (>60); GFR (African American) 87 ML/MIN (>60)
[2024-12-04 20:34] LABS: Alanine Aminotransferase 29 U/L (12-78); Albumin/Globulin Ratio 1.7 (1.1-1.8); Alkaline Phosphatase 122 U/L (38-126); Anion Gap 24.3 mEq/L (5-15); Aspartate Amino Transferase 53 U/L (14-36); Bilirubin,Total 0.9 mg/dl (0.2-1.3); Calcium 10.2 mg/dl (8.4-10.2); Carbon Dioxide 20 mmol/L (22.0-30.0); Globulin 2.7 g/dL (1.3-3.2); Glucose 151 mg/dl (74-100); Total Protein,Serum 7.2 g/dl (6.3-8.2)
[2024-12-04 20:46] LABS: Microscopic, Urine URINE MICROSCOPIC (MICROSCOPIC)
[2024-12-04 20:49] LABS: Bilirubin,Urine Negative (Negative); Color,Urine YELLOW (Yellow); Glucose,Urine (UA) Negative (Negative); Ketones,Urine Negative (Negative); Leukocyte Esterase,Urine 3+ (Negative); PH,Urine 6.0 (5.0-8.5); Protein,Urine Negative (Negative); Specific Gravity, Urine 1.010 (1.005-1.030); Urobilinogen,Urine 0.2 EU/dl (0.2)
[2024-12-04 20:58] LABS: Troponin I < 0.01 ng/ml (0.00-0.034)
[2024-12-04 21:01] LABS: Barbiturates Screen,Urine Negative ng/ml (<200)
[2024-12-04 21:02] LABS: Benzodiazepines Screen,Urine Negative ng/ml (<200)
[2024-12-04 21:03] LABS: Amphetamine/Metha Screen,Urine Negative ng/ml (<1000)
[2024-12-04 21:04] LABS: Bacteria,Urine 3+ /lpf; Hyaline Casts,Urine Occasional #/lpf (0); Methadone Screen,Urine Negative ng/ml (<300); WBC,Urine 20-50 #/hpf (0-3)
[2024-12-04 21:05] LABS: Opiate Screen,Urine Negative ng/ml (<300)
[2024-12-04 21:06] LABS: Phencyclidine Screen,Urine Negative ng/ml (<25)
[2024-12-04] MEDS: IOPAMIDOL-370 (76%);100ML BOTTLE 75 ML IV (21:18)
[2024-12-04] MEDS: SODIUM CHLORIDE 0.9% 10ML SYR (RAD ONLY) 10 ML IV (21:18)
[2024-12-04 21:19] LABS: Acetone, Serum (Rapid) None Detected (None Detect)
[2024-12-04] MEDS: ACETAMINOPHEN 1,000MG/100ML VIAL 1000 MG IV (22:38)
[2024-12-04] MEDS: CEFEPIME HCL 1 GM in 0.9 % SODIUM CHLORIDE 50 ML IV (22:39)
[2024-12-04 22:40] LABS: VBG HCO3 19.7 mmol/L (23-30); VBG PCO2 37.2 mmol/L (35-51); VBG PH 7.34 mmol/L (7.31-7.41); VBG PO2 45.1 mmol/L (28-40)
[2024-12-04 22:43] LABS: Lactate Venous 4.8 mmol/L (0.4-2.0)
[2024-12-04 22:46] LABS: Troponin I < 0.01 ng/ml (0.00-0.034)
--- NOTE | 2024-12-04 23:46 | PC.NURSE ---
called report to Ronnell BONNER at this time
--- NOTE | 2024-12-05 00:07 | PC.NURSE ---
Patient arrived to floor via stretcher from ED at 00:03.
[2024-12-05] MEDS: VANCOMYCIN/WATER FOR INJ (PEG) 1.5 GM/300 ML PIGGYBACK IV (00:13)
[2024-12-05] MEDS: 0.9 % SODIUM CHLORIDE 1000ML 1,000 ML 75 ML IV (00:13)
[2024-12-05 00:14] LABS: Reflex Lactic Add Lactic Reflex
[2024-12-05 00:16] VITALS: BP 103/64; PULSE 97; RESP 18; TEMP 36.8; O2SAT 95; BMI 26.6
[2024-12-05 01:56] LABS: Lactic Acid Follow Up (RFLX 1) 4.6 mmol/L (0.7-2.1)
[2024-12-05 02:06] LABS: Troponin I 0.04 ng/ml (0.00-0.034)
[2024-12-05 03:35] LABS: Reflex Lactic (2 hrs) Add Lactic Reflex
[2024-12-05 04:00] VITALS: BP 94/57; PULSE 83; RESP 16; TEMP 36.5; O2SAT 94; BMI 26.6
[2024-12-05 05:57] LABS: Chloride 96 mmol/L (98-107); Potassium 3.1 mmoL/L (3.5-5.1); Sodium 131 mmol/L (136-145)
[2024-12-05 06:00] LABS: Anion Gap 11.1 mEq/L (5-15); Blood Urea Nitrogen 6 mg/dl (7-17); Calcium 8.3 mg/dl (8.4-10.2); Carbon Dioxide 27 mmol/L (22.0-30.0); Creatinine Clearance Estimated 58 mL/min (50-200); Creatinine,Serum 0.60 mg/dl (0.52-1.04); Estimated Glomerular Filt Rate 100 ml/min (>60); GFR (African American) 121 ML/MIN (>60); Glucose 97 mg/dl (74-100)
[2024-12-05 06:21] LABS: Hematocrit 37.1 % (37.0-47.0); Immature Granulocytes % 0.2 %; Mean Corpuscular HGB Conc 33.2 g/dL (31.8-35.4); Mean Corpuscular Hemoglobin 30.9 pg (27.0-31.2); Mean Corpuscular Volume 93.2 fl (81-99); Nucleated Red Blood Cells % 0 %; Platelet Count 261 K/mm3 (142-424); Red Blood Count 3.98 M/mm3 (4.20-5.40); Red Cell Distribution Width-SD 45.7 fL; White Blood Count 11.0 K/mm3 (4.8-10.8)
--- NOTE | 2024-12-05 06:27 | EXP.HP ---
History of Present Illness *Admission Date: 12/04/24 *Reason for visit:: Diarrhea *History of present illness: Patient is a 63-year-old female who presents to the hospital due to a syncopal episode at home, patient was having a bowel movement yesterday evening and had an episode of syncope. Patient also had associated nausea vomiting. Patient has past medical history of diabetes mellitus hyperlipidemia fibromyalgia, COPD, hypertension. Patient on further evaluation was found to have tachycardia as well as hypotension. Patient denied chest pain shortness of breath nausea vomiting diarrhea constipation dysuria fevers and chills at time of my evaluation. [facility] Disclaimer: The information contained in this section may have been updated after the patient was seen, as this information can be updated by other users. Medical History Establishing care with new doctor, encounter for Left ear pain Otorrhea, left ear Perforation of left tympanic membrane Acute left otitis media History of tumor COPD mixed type Multiple lung nodules on CT Smoking greater than 30 pack years Oral thrush Left otitis externa Amputation of fifth toe of left foot T2DM (type 2 diabetes mellitus) Surgical History History of cholecystectomy History of tonsillectomy and adenoidectomy History of placement of ear tubes History of skin graft H/O melanoma excision Family History Other Asthma Cancer Dementia Diabetes Hyperlipidemia Social History Smoking Status: Unknown if ever smoked alcohol intake: never substance use type: denies use current occupational status: disabled Travel in the last 8 weeks?: None marital status: number of children: 4 Have you lived/traveled outside [place] in past 30 days?: No Contact w/someone who lives/traveled outside US past 30 days?: No Exposure to someone with infectious disease in past 14 days?: No Do you have a fever (greater than 100.4 F or 38 C)?: No Have you tested positive for COVID-19?: No Exposed to someone with COVID-19 in past 14 days?: No Do you have a sore throat?: No Do you have a cough?: No Do you have any weakness?: No Do you have any diarrhea?: No Are you experiencing any unusual bleeding?: No Do you have any muscle aches/pain?: No Do you have any abdominal pain?: No Are you experiencing loss of taste or smell?: No Other Medical History Have you received the Flu Vaccine for this season: Yes Have you received the Pneumonia Vaccine: Yes Review of Systems Review of Systems Review of systems:: pertinent systems reviewed and negative unless documented below Meds Home Medications and Allergies Home Medications ?Medication ?Instructions ?Recorded ?Confirmed ?Type ascorbic acid (vitamin C) 1,000 mg 1 g PO DAILY 01/23/18 12/05/24 History tablet blood-glucose meter (ReliOn Micro #1 ea 01/23/18 10/06/24 History Glucose Monitor kit) cetirizine 10 mg tablet 10 mg PO DAILY 10/07/23 12/05/24 History metformin 1,000 mg tablet 1,000 mg PO BID #180 tabs 11/18/23 12/05/24 Rx magnesium oxide 500 mg capsule 500 mg PO DAILY #30 caps 01/07/24 12/05/24 Rx hydralazine 25 mg tablet 25 mg PO DAILY #90 tabs 04/22/24 12/05/24 Rx potassium chloride 20 mEq 20 meq PO BID #60 tabs 10/06/24 12/05/24 Rx tablet,extended release(part/cryst) atorvastatin 40 mg tablet 40 mg PO DAILY 12/05/24 12/05/24 History cholecalciferol (vitamin D3) 1,250 1,250 mcg PO DAILY 12/05/24 12/05/24 History mcg (50,000 unit) capsule coQ10 (ubiquinol) 100 mg capsule 100 mg PO DAILY 12/05/24 12/05/24 History (Qunol Judd CoQ10) New Prescriptions to Start Prescriptions: Allergies Allergy/AdvReac Type Severity Reaction Status Date / Time clarithromycin (From BIAXIN) Allergy Unknown Verified 10/06/24 11:14 morphine (MORPHINE) Allergy Unknown Verified 10/06/24 11:14 Penicillins (PENICILLINS) Allergy Unknown Verified 10/06/24 11:14 propoxyphene (From DARVON) Allergy Unknown Verified 10/06/24 11:14 Exam Data for Last 24 hours Vital signs and Labs for Last 24 Hours: Temp Pulse Resp BP Pulse Ox O2 Del Method 97.7 F 83 16 94/57 L 94 L Room Air 12/05/24 04:00 12/05/24 04:00 12/05/24 04:00 12/05/24 04:00 12/05/24 04:00 12/05/24 05:00 Laboratory Results - last 24 hr 12/04/24 20:03: WBC 12.9 H, RBC 4.85, Hgb 15.3, Hct 44.7, MCV 92.2, MCH 31.5 H, MCHC 34.2, RDW 13.2, Plt Count 237, MPV 11.6 H, Neut % (Auto) 56.4, Lymph % (Auto) 36.3, [place] % (Auto) 5.7, Eos % (Auto) 0.8, Baso % (Auto) 0.5, Neut # (Auto) 7.3, Lymph # (Auto) 4.7 H, [place] # (Auto) 0.7, Eos # (Auto) 0.1, Baso # (Auto) 0.1, VBG pH 7.36, VBG pCO2 39.0, VBG pO2 51.6 H, VBG HCO3 21.3 L, VBG Total CO2 22.5 L, VBG O2 Saturation 87.4 H, VBG Base Excess -4.2 L, VBG Lactic Acid 8.9 H, Sodium 130 L, Potassium 4.3, Chloride 90 L, Carbon Dioxide 20 L, Anion Gap 24.3 H, BUN 6 L, Creatinine 0.80, Estimated Creat Clear 52, Estimated GFR 72, Est GFR ( Amer) 87, Glucose 151 H, Calcium 10.2, Total Bilirubin 0.9, AST 53 H, ALT 29, Alkaline Phosphatase 122, Troponin I < 0.01, Total Protein 7.2, Albumin 4.5, Globulin 2.7, Albumin/Globulin Ratio 1.7, Plasma/Serum Alcohol < 10, Acetone Level None detected 12/04/24 20:40: Urine Color Yellow, Urine Appearance Clear, Urine pH 6.0, Ur Specific [place] 1.010, Urine Protein Negative, Urine Glucose (UA) Negative, Urine Ketones Negative, Urine Blood Negative, Urine Nitrate Negative, Urine Bilirubin Negative, Urine Urobilinogen 0.2, Ur Leukocyte Esterase 3+ A, Urine WBC 20-50, Ur Squamous Epith Cells 10-20, Urine Bacteria 3+, Hyaline Casts Occasional, Urine Opiates Screen Negative, Urine Methadone Screen Negative, Ur Barbituates Screen Negative, Ur Phencyclidine Scrn Negative, Ur Amphetamines Screen Negative, U Benzodiazepines Scrn Negative, Urine Cocaine Screen Negative, U Marijuana (THC) Screen Negative 12/04/24 22:15: Troponin I < 0.01 12/04/24 22:30: VBG pH 7.34, VBG pCO2 37.2, VBG pO2 45.1 H, VBG HCO3 19.7 L, VBG Total CO2 20.9 L, VBG O2 Saturation 82.6 H, VBG Base Excess -6.0 L, VBG Lactic Acid 4.8 H 12/05/24 01:30: Lactate 4.6 H, Troponin I 0.04 H I & O for Last 24 hours: Intake & Output 12/02/24 12/03/24 12/04/24 12/05/24 23:59 23:59 23:59 23:59 Intake Total 150 / 150 Output Total 750 / 750 Balance -600 / -600 Weight 58.967 kg 65.589 kg Constitutional Constitutional: no acute distress *Routine HEENT Exam Head: Present normocephalic Eye: Present EOMI and PERRL ENT: Present mucous membranes moist *Routine Neck Exam Neck: Present supple; Absent lymphadenopathy *Routine Respiratory Exam Respiratory: Present CTA bilaterally *Routine Cardiovascular Exam Cardiovascular: Present RRR *Routine Abdominal Exam Abdominal: Present soft and normoactive bowel sounds; Absent tenderness *Routine Rectal Exam Rectal:: deferred *Routine Genitalia Exam Genitalia:: deferred *Routine Extremities Exam Extremities: Absent cyanosis, clubbing or edema *Routine Skin Exam Skin: Present warm; Absent rash *Routine Neurological Exam Neurological: Present alert and oriented X3 Assessment and Plan *Assessment and plan (1) Sepsis: Status: Acute Category: Medical Code(s): A41.9 - Sepsis, unspecified organism (2) HTN (hypertension): Status: Acute Category: Medical Code(s): I10 - Essential (primary) hypertension (3) COPD mixed type: Status: Acute Category: Medical Code(s): J44.9 - Chronic obstructive pulmonary disease, unspecified (4) T2DM (type 2 diabetes mellitus): Status: Acute Category: Medical Code(s): E11.9 - Type 2 diabetes mellitus without complications Plan Patient is a 63-year-old female who presents to the hospital due to a syncopal episode at home, patient was having a bowel movement yesterday evening and had an episode of syncope. Patient also had associated nausea vomiting. Patient has past medical history of diabetes mellitus hyperlipidemia fibromyalgia, COPD, hypertension. Patient on further evaluation was found to have tachycardia as well as hypotension. Patient denied chest pain shortness of breath nausea vomiting diarrhea constipation dysuria fevers and chills at time of my evaluation. Assessment and plan Syncope Diarrhea secondary to enterocolitis Lactic acidosis Hypotension Hypovolemia Hyponatremia Leukocytosis likely reactive Start IV fluids Monitor lactic acid Lactic acid on admission 8.9 Check UA Closely monitor and replace electrolytes Check orthostatic vitals Chronic medical conditions COPD Hypertension Diabetes mellitus Hyperlipidemia Order insulin sliding scale Resume home atorvastatin, hydralazine DVT prophylaxis-subcutaneous heparin
[2024-12-05 06:51] LABS: Lactic Acid Follow up (RFLX 2) 2.2 mmol/L (0.7-2.1)
[2024-12-05] MEDS: CEFTRIAXONE 1 GM 1 GM in 0.9 % SODIUM CHLORIDE 50 ML IV (06:57)
--- NOTE | 2024-12-05 07:35 | P.PN_ITS ---
Subjective *Date: 12/05/24 *Time: 11:33 Interval history: Stable on room air. Afebrile. No nausea or vomiting today. Denies chest pain or shortness of breath. Answers questions appropriately but is slow to respond and has a very odd affect. Medical Exam Vital signs and Labs for Last 24 Hours: Vital Signs Temp Pulse Pulse Resp BP BP Pulse Ox 12/05/24 06:47 12/05/24 05:00 12/05/24 04:00 97.7 F 83 16 94/57 L 94 L 12/05/24 03:00 12/05/24 01:00 12/05/24 00:16 98.3 F 97 H 18 103/64 L 95 12/04/24 23:55 17 118/67 12/04/24 23:53 98.0 F 96 H 18 118/67 12/04/24 23:30 95 H 24 103/70 L 96 12/04/24 23:00 98 H 22 122/70 96 12/04/24 22:55 12/04/24 22:30 102 H 19 112/71 94 L 12/04/24 22:00 98 H 21 111/64 95 12/04/24 21:30 99 H 19 118/67 95 12/04/24 21:00 98 H 21 131/73 98 12/04/24 20:45 100 H 21 141/69 H 99 12/04/24 20:18 98.0 F 98 H 18 92/48 L 97 O2 Del Method 12/05/24 06:47 Room Air 12/05/24 05:00 Room Air 12/05/24 04:00 Room Air 12/05/24 03:00 Room Air 12/05/24 01:00 Room Air 12/05/24 00:16 Room Air 12/04/24 23:55 12/04/24 23:53 Room Air 12/04/24 23:30 12/04/24 23:00 12/04/24 22:55 Room Air 12/04/24 22:30 12/04/24 22:00 12/04/24 21:30 12/04/24 21:00 12/04/24 20:45 12/04/24 20:18 Room Air Intake and Output 12/04/24 12/04/24 12/05/24 15:59 23:59 07:59 Intake Total 150 / 150 Output Total 750 / 750 Balance -600 / -600 Intake: Intake, Oral Amount 150 / 150 Output: Output, Urine Amount 750 / 750 Other: Number of Unmeasured Voids 0 Weight 58.967 kg 65.589 kg Patient Weight 12/05/24 23:59 Weight 65.589 kg Laboratory Results - last 24 hr 12/04/24 20:03: WBC 12.9 H, RBC 4.85, Hgb 15.3, Hct 44.7, MCV 92.2, MCH 31.5 H, MCHC 34.2, RDW 13.2, Plt Count 237, MPV 11.6 H, Neut % (Auto) 56.4, Lymph % (Auto) 36.3, [place] % (Auto) 5.7, Eos % (Auto) 0.8, Baso % (Auto) 0.5, Neut # (Auto) 7.3, Lymph # (Auto) 4.7 H, [place] # (Auto) 0.7, Eos # (Auto) 0.1, Baso # (Auto) 0.1, VBG pH 7.36, VBG pCO2 39.0, VBG pO2 51.6 H, VBG HCO3 21.3 L, VBG Total CO2 22.5 L, VBG O2 Saturation 87.4 H, VBG Base Excess -4.2 L, VBG Lactic Acid 8.9 H, Sodium 130 L, Potassium 4.3, Chloride 90 L, Carbon Dioxide 20 L, Anion Gap 24.3 H, BUN 6 L, Creatinine 0.80, Estimated Creat Clear 52, Estimated GFR 72, Est GFR ( Amer) 87, Glucose 151 H, Calcium 10.2, Total Bilirubin 0.9, AST 53 H, ALT 29, Alkaline Phosphatase 122, Troponin I < 0.01, Total Protein 7.2, Albumin 4.5, Globulin 2.7, Albumin/Globulin Ratio 1.7, Plasma/Serum Alcohol < 10, Acetone Level None detected 12/04/24 20:40: Urine Color Yellow, Urine Appearance Clear, Urine pH 6.0, Ur Specific [place] 1.010, Urine Protein Negative, Urine Glucose (UA) Negative, Urine Ketones Negative, Urine Blood Negative, Urine Nitrate Negative, Urine Bilirubin Negative, Urine Urobilinogen 0.2, Ur Leukocyte Esterase 3+ A, Urine WBC 20-50, Ur Squamous Epith Cells 10-20, Urine Bacteria 3+, Hyaline Casts Occasional, Urine Opiates Screen Negative, Urine Methadone Screen Negative, Ur Barbituates Screen Negative, Ur Phencyclidine Scrn Negative, Ur Amphetamines Screen Negative, U Benzodiazepines Scrn Negative, Urine Cocaine Screen Negative, U Marijuana (THC) Screen Negative 12/04/24 22:15: Troponin I < 0.01 12/04/24 22:30: VBG pH 7.34, VBG pCO2 37.2, VBG pO2 45.1 H, VBG HCO3 19.7 L, VBG Total CO2 20.9 L, VBG O2 Saturation 82.6 H, VBG Base Excess -6.0 L, VBG Lactic Acid 4.8 H 12/05/24 01:30: Lactate 4.6 H, Troponin I 0.04 H 12/05/24 05:40: Sodium 131 L, Potassium 3.1 L D, Chloride 96 L, Carbon Dioxide 27, Anion Gap 11.1, BUN 6 L, Creatinine 0.60 D, Estimated Creat Clear 58, Estimated GFR 100, Est GFR ( Amer) 121 D, Glucose 97 D, Lactate 2.2 H, Calcium 8.3 L I & O for Labs for Last 24 Hours: Intake & Output 12/02/24 12/03/24 12/04/24 12/05/24 23:59 23:59 23:59 23:59 Intake Total 150 / 150 Output Total 750 / 750 Balance -600 / -600 Weight 58.967 kg 65.589 kg Constitutional: Present no acute distress, average body habitus, chronically ill appearing and cooperative Head: Present atraumatic and normocephalic ENT: Present normal exam Respiratory: Present normal respiratory effort; Absent rhonchi, wheezes or crackles Cardiac: Present Reg Rate and Rhythm GI: Present soft, tenderness (Nonfocal) and normal bowel sounds; Absent distention Extremities: Present normal inspection and full ROM Skin: Present intact; Absent erythema Neuro: Present Grossly Intact, alert, awake, oriented x 3 and moves all extremities Comment:: On affect Assessment and Plan *Assessment and plan (1) Sepsis: Status: Acute Category: Medical Code(s): A41.9 - Sepsis, unspecified organism (2) HTN (hypertension): Status: Acute Category: Medical Code(s): I10 - Essential (primary) hypertension (3) COPD mixed type: Status: Acute Category: Medical Code(s): J44.9 - Chronic obstructive pulmonary disease, unspecified (4) T2DM (type 2 diabetes mellitus): Status: Acute Category: Medical Code(s): E11.9 - Type 2 diabetes mellitus without complications (5) Hypokalemia: Status: Acute Category: Medical Code(s): E87.6 - Hypokalemia (6) UTI (urinary tract infection): Status: Acute Category: Medical Code(s): N39.0 - Urinary tract infection, site not specified (7) COPD (chronic obstructive pulmonary disease): Status: Chronic Qualifiers: COPD type: unspecified COPD Qualified Code(s): J44.9 - Chronic obstructive pulmonary disease, unspecified Category: Medical Code(s): J44.9 - Chronic obstructive pulmonary disease, unspecified (8) Gastroenteritis: Status: Acute Category: Medical Code(s): K52.9 - Noninfective gastroenteritis and colitis, unspecified Plan Patient is a 63-year-old female who presents to the hospital due to a syncopal episode at home, patient was having a bowel movement yesterday evening and had an episode of syncope. Patient also had associated nausea vomiting. Patient has past medical history of diabetes mellitus hyperlipidemia fibromyalgia, COPD, hypertension. Patient on further evaluation was found to have tachycardia as well as hypotension. Patient denied chest pain shortness of breath nausea vomiting diarrhea constipation dysuria fevers and chills at time of my evaluation. Admitted for treatment of sepsis secondary to enterocolitis. Vitals improved this morning. Tolerating p.o. intake. Continues to require inpatient management. Problems addressed as follows: Sepsis Diarrhea secondary to enterocolitis Lactic acidosis Hypotension Hypovolemia Hyponatremia Leukocytosis likely reactive UTI - Continue maintenance IV fluids with NS at 100 cc an hour. -Blood and urine cultures pending. Urinalysis abnormal with 3+ leuk esterase and 3+ bacteria - Continue cefepime 1 g every 12 hours. Continue Flagyl 500 mg 3 times a day. Received vancomycin in ED, discontinued at this time. - Lactic acid on admission 8.9, improved this morning at 3 -White count 12.9 on admission. Repeat labs this morning with sodium of 131, magnesium 3.1, BUN 6 and creatinine 0.6. Repeat CBC, CMP, magnesium ordered for the morning. - Replace electrolytes per protocol Chronic medical conditions COPD Hypertension Diabetes mellitus Hyperlipidemia - Per chart review, A1c 2 months ago of 8.1. Repeat ordered and pending. TSH pending -Continue sliding scale insulin with fingersticks ACHS. Holding hydralazine due to hypotension above. Diabetic diet Full code DVT prophylaxis-subcutaneous heparin
[2024-12-05 07:47] VITALS: BP 101/58; PULSE 92; RESP 16; TEMP 36.8; O2SAT 91
--- NOTE | 2024-12-05 08:44 | HMH.PHAINT1 ---
Pharmacy Intervention Comments: MEDICATION RECONCILIATION COMPLETED ON PATIENT USING EXTERNAL FILL HISTORY FROM PHARMACY AND LIST FROM PCP OFFICE. -NILDA FORTUNE, DAWND
[2024-12-05] MEDS: POTASSIUM CHLORIDE 20MEQ TAB 40 MEQ PO ×3 (09:24→16:42)
[2024-12-05] MEDS: METRONIDAZ/SOD CHL 500 MG/100 ML PIGGYBACK 100 MG IV ×3 (09:24→21:10)
[2024-12-05] MEDS: LORATADINE 10MG TABLET 10 MG PO (09:24)
[2024-12-05] MEDS: humaLOG 100 UNITS/ML 10ML VIAL (SSI) SUBCUT (11:13)
[2024-12-05 11:43] LABS: POC Glucose,Bedside 162 (70-110)
[2024-12-05 12:21] LABS: Thyroid Stimulating Hormone 1.21 uIU/mL (0.465-4.68)
[2024-12-05 12:42] LABS: Hemoglobin 12.3 g/dL (12.2-16.2)
[2024-12-05 12:58] LABS: Hemoglobin A1C 8.2 % (4.0-6.0)
[2024-12-05] MEDS: 0.9 % SODIUM CHLORIDE 1000ML 1,000 ML 100 ML IV (15:36)
[2024-12-05 16:00] VITALS: BP 89/53; PULSE 78; RESP 18; TEMP 36.8; O2SAT 93
[2024-12-05 16:44] LABS: POC Glucose,Bedside 130 (70-110)
--- NOTE | 2024-12-05 18:37 | PC.NURSE ---
around 1730 dietary came out of pts room and stated she was smoking a cigarette. seble woodward went in the room and told pt she can not do that and asked for her cigarettes to lock up, pt refused to give up her cigarettes. called for an order for nicotine patches which pt agreed to and stated she would not smoke again. after returning with the nicotine patches, pt stated i dont need those, i dont smoke but did end up putting on the patches. pt alert to self and place at this time
[2024-12-05 19:58] VITALS: BP 106/63; PULSE 84; RESP 18; TEMP 36.4; O2SAT 97
[2024-12-05] MEDS: ATORVASTATIN 40MG TABLET 40 MG PO (21:01)
--- NOTE | 2024-12-05 21:21 | PC.NURSE ---
Upon inspection of the patient's intravenous fluids, it was noticed that her previous Flagyl dose (scanned in the AUG at 16:42) did not infuse. [facility] was paged to re-time the Flagyl administration.
[2024-12-05 21:44] LABS: POC Glucose,Bedside 149 (70-110)
[2024-12-05 23:36] VITALS: BP 133/67; PULSE 82; RESP 16; TEMP 36.5; O2SAT 94
[2024-12-06 04:00] VITALS: BP 118/73; PULSE 74; RESP 18; TEMP 36.6; O2SAT 95; BMI 29.1
--- NOTE | 2024-12-06 04:59 | PC.NURSE ---
Pt is alert & oriented x2, person & place. Pt has been confused most of this shift, she appears to question most directions but ultimately cooperates. Pt set bed alarm off multiple times, in regards for better safety a staff member did accompany the pt for sometime. Pt did have two infiltrated IV's upon beginning of shift, which were removed, and replaced with another IV. Pt then approximately two hours later pulled that IV out, it has since been replaced and is infusing well at this time. Pt has ambulated many times to the toilet, revealing good urinary output. Pt is on RA. Pt had audible bilateral throughout expiatory wheezes upon the lung sounds assessment. Pt was insisting on smoking a cigarette in her room, pt was educated on strict no smoking policy, and pt did willing give her cigarettes to this nurse to be locked up in the med tube drawer her room. However, pt did refuse to give up her technology sales specialist. Pt did not receive any insulin coverage for her 2100 blood glucose check. Pt voicing no further concerns. Pt resting well with call light in reach. Plan of care ongoing.
[2024-12-06] MEDS: METRONIDAZ/SOD CHL 500 MG/100 ML PIGGYBACK 100 MG IV (05:16)
[2024-12-06 05:27] LABS: POC Glucose,Bedside 106 (70-110)
[2024-12-06 07:49] VITALS: BP 129/69; PULSE 77; RESP 18; TEMP 36.4; O2SAT 91
[2024-12-06 07:51] LABS: Hematocrit 36.7 % (37.0-47.0); Hemoglobin 12.5 g/dL (12.2-16.2); Immature Granulocytes % 0.2 %; Mean Corpuscular HGB Conc 34.1 g/dL (31.8-35.4); Mean Corpuscular Hemoglobin 32.0 pg (27.0-31.2); Mean Corpuscular Volume 93.9 fl (81-99); Nucleated Red Blood Cells % 0 %; Platelet Count 252 K/mm3 (142-424); Red Blood Count 3.91 M/mm3 (4.20-5.40); Red Cell Distribution Width-SD 47.3 fL; White Blood Count 9.7 K/mm3 (4.8-10.8)
--- NOTE | 2024-12-06 08:03 | EXP.DC.SUM ---
General Admission date:: 12/04/24 Discharge date: 12/06/24 HPI HPI HPI: Patient is a 63-year-old female who presents to the hospital due to a syncopal episode at home, patient was having a bowel movement yesterday evening and had an episode of syncope. Patient also had associated nausea vomiting. Patient has past medical history of diabetes mellitus hyperlipidemia fibromyalgia, COPD, hypertension. Patient on further evaluation was found to have tachycardia as well as hypotension. Patient denied chest pain shortness of breath nausea vomiting diarrhea constipation dysuria fevers and chills at time of my evaluation. Hospital Course Hospital Course Hospital Course: Patient is a 63-year-old female who presents to the hospital due to a syncopal episode at home, patient was having a bowel movement yesterday evening and had an episode of syncope. Patient also had associated nausea vomiting. Patient has past medical history of diabetes mellitus hyperlipidemia fibromyalgia, COPD, hypertension. Patient on further evaluation was found to have tachycardia as well as hypotension. Patient denied chest pain shortness of breath nausea vomiting diarrhea constipation dysuria fevers and chills at time of my evaluation. Admitted for treatment of sepsis secondary to enterocolitis. Vitals improved by morning. Able to advance diet. Treated with antibiotics for 3 days. Given her clinical improvement, normalization of labs, tolerance of p.o. intake, stable discharge home. Problems addressed as follows: Sepsis Diarrhea secondary to enterocolitis Lactic acidosis Hypotension Hypovolemia Hyponatremia Leukocytosis likely reactive UTI - Blood and urine cultures obtained. Initiated on empiric antibiotics with cefepime and Flagyl. Urine suspicious for UTI given 3+ leuk esterase and 3+ bacteria. Cultures from both blood and urine remain negative however. Given her clinical improvement and normalization of white count to 9.7 by day of discharge, will discontinue antibiotics. Tolerating regular diet. Metabolic disturbances resolved. suspect lactic acidosis from metformin. Recommend holding at this time due to GI upset and lactic acidosis Chronic medical conditions COPD Hypertension Diabetes mellitus Hyperlipidemia - Per chart review, A1c 2 months ago of 8.1. TSH 1.2 on admission. A1c 8.2 this admission. Continue home medications. Given stability in blood pressure during admission, recommend discontinuing hydralazine. In regard to cognitive impairment, review of chart shows note from 5/6 PCP visit with Yessenia Ball: Memory loss: Is forgetting birthdays, holidays, and important events. 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 Daughter denies any aggressive behaviors. History of falls not resulting in injuries, ambulates with a cane, 4 falls in 10/2023, lives alone in [facility]. Started during COVID with self isolation. Neurologist: Dr. Stewart - 12/24/2023: Brain MRI revealed no acute infarct, periventricular and subcortical white matter signal changes compatible with chronic microvascular change, and dominant arachnoid cyst in anterior left temporal lobe. agree with MCI, suspect vascular dementia due to chronic smoking. Changes seen in MRI Total time spent on discharge 35 minutes in counseling, documentation, chart review, and direct care with patient. Exam Data for Last 24 hours Vital signs and Labs for Last 24 Hours: Temp Pulse Resp BP Pulse Ox O2 Del Method 97.6 F 77 18 129/69 91 L Room Air 12/06/24 07:49 12/06/24 07:49 12/06/24 07:49 12/06/24 07:49 12/06/24 07:49 12/06/24 07:49 Laboratory Results - last 24 hr 12/05/24 05:40: WBC 11.0 H, RBC 3.98 L, Hgb 12.3 D, Hct 37.1, MCV 93.2, MCH 30.9, MCHC 33.2, RDW 13.3, Plt Count 261, MPV 11.1 H, Neut % (Auto) 59.0, Lymph % (Auto) 32.2, [place] % (Auto) 7.0, Eos % (Auto) 1.1, Baso % (Auto) 0.5, Neut # (Auto) 6.5, Lymph # (Auto) 3.5, [place] # (Auto) 0.8, Eos # (Auto) 0.1, Baso # (Auto) 0.1, Hemoglobin A1c 8.2 H, TSH 1.21 12/05/24 11:03: POC Glucose 162 H 12/05/24 16:27: POC Glucose 130 H 12/05/24 21:02: POC Glucose 149 H 12/06/24 05:15: POC Glucose 106 I & O for Last 24 hours: Intake & Output 12/03/24 12/04/24 12/05/24 12/06/24 23:59 23:59 23:59 23:59 Intake Total 1330 / 1430 369 / 369 Output Total 1930 / 1930 1250 / 1250 Balance -600 / -500 -881 / -881 Weight 58.967 kg 65.589 kg 71.758 kg Microbiology Reports for the Last 24 Hours: Microbiology 12/04/24 20:40 Urine,Clean Catch Urine Culture - Final No growth. 12/04/24 21:00 Blood Blood Culture - Preliminary NO GROWTH AFTER 24 HOURS 12/04/24 20:21 Blood Blood Culture - Preliminary NO GROWTH AFTER 24 HOURS Constitutional Constitutional: no acute distress, chronically ill appearing and cooperative *Routine HEENT Exam Head: Present normocephalic Eye: Present EOMI and PERRL ENT: Present mucous membranes moist *Routine Neck Exam Neck: Present supple; Absent lymphadenopathy *Routine Respiratory Exam Respiratory: Present CTA bilaterally and rhonchi; Absent wheezes or crackles *Routine Cardiovascular Exam Cardiovascular: Present RRR *Routine Abdominal Exam Abdominal: Present soft and normoactive bowel sounds; Absent tenderness *Routine Extremities Exam Extremities: Absent cyanosis, clubbing or edema *Routine Skin Exam Skin: Present warm; Absent rash *Routine Neurological Exam Neurological: Present alert, altered mental status and moving all extremities Comments: Oriented to self and place. Appears to have some difficulty with recall answering questions. Is pleasantly confused. Results Data Completed and Pending Labs on day of discharge: Labs from last 24 hours 12/06/24 12/05/24 12/05/24 05:15 21:02 16:27 WBC RBC Hgb Hct MCV MCH MCHC RDW Plt Count MPV Neut % (Auto) Lymph % (Auto) [place] % (Auto) Eos % (Auto) Baso % (Auto) Neut # (Auto) Lymph # (Auto) [place] # (Auto) Eos # (Auto) Baso # (Auto) POC Glucose 106 149 H 130 H Hemoglobin A1c TSH 12/05/24 12/05/24 11:03 05:40 WBC 11.0 H RBC 3.98 L Hgb 12.3 D Hct 37.1 MCV 93.2 MCH 30.9 MCHC 33.2 RDW 13.3 Plt Count 261 MPV 11.1 H Neut % (Auto) 59.0 Lymph % (Auto) 32.2 [place] % (Auto) 7.0 Eos % (Auto) 1.1 Baso % (Auto) 0.5 Neut # (Auto) 6.5 Lymph # (Auto) 3.5 [place] # (Auto) 0.8 Eos # (Auto) 0.1 Baso # (Auto) 0.1 POC Glucose 162 H Hemoglobin A1c 8.2 H TSH 1.21 Preliminary micro results at discharge 12/04/24 21:00 Blood Culture - Preliminary Blood NO GROWTH AFTER 24 HOURS 12/04/24 20:21 Blood Culture - Preliminary Blood NO GROWTH AFTER 24 HOURS DS: Diagnosis Discharge Diagnosis (1) Sepsis: Status: Acute Code(s): A41.9 - Sepsis, unspecified organism (2) HTN (hypertension): Status: Acute Code(s): I10 - Essential (primary) hypertension (3) COPD mixed type: Status: Acute Code(s): J44.9 - Chronic obstructive pulmonary disease, unspecified (4) T2DM (type 2 diabetes mellitus): Status: Acute Code(s): E11.9 - Type 2 diabetes mellitus without complications (5) Hypokalemia: Status: Acute Code(s): E87.6 - Hypokalemia (6) UTI (urinary tract infection): Status: Acute Code(s): N39.0 - Urinary tract infection, site not specified (7) COPD (chronic obstructive pulmonary disease): Status: Chronic Code(s): J44.9 - Chronic obstructive pulmonary disease, unspecified Qualifiers: COPD type: unspecified COPD Qualified Code(s): J44.9 - Chronic obstructive pulmonary disease, unspecified (8) Gastroenteritis: Status: Acute Code(s): K52.9 - Noninfective gastroenteritis and colitis, unspecified Meds Home Medications and Allergies Home Medications ?Medication ?Instructions ?Recorded ?Confirmed ?Type ascorbic acid (vitamin C) 1,000 mg 1 g PO DAILY 01/23/18 12/05/24 History tablet cetirizine 10 mg tablet 10 mg PO DAILY 10/07/23 12/05/24 History metformin 1,000 mg tablet 1,000 mg PO BID #180 tabs 11/18/23 12/05/24 Rx atorvastatin 40 mg tablet 40 mg PO HS 12/05/24 12/05/24 History cholecalciferol (vitamin D3) 1,250 1,250 mcg PO DAILY 12/05/24 12/05/24 History mcg (50,000 unit) capsule coQ10 (ubiquinol) 100 mg capsule 100 mg PO DAILY 12/05/24 12/05/24 History (Qunol Judd CoQ10) sitagliptin phosphate 50 mg tablet 50 mg PO DAILY #30 tabs 12/06/24 Rx (Januvia) New Prescriptions to Start Prescriptions: sitagliptin phosphate [Januvia] Marques Dewitt Allergies Allergy/AdvReac Type Severity Reaction Status Date / Time clarithromycin (From BIAXIN) Allergy Unknown Verified 10/06/24 11:14 morphine (MORPHINE) Allergy Unknown Verified 10/06/24 11:14 Penicillins (PENICILLINS) Allergy Unknown Verified 10/06/24 11:14 propoxyphene (From DARVON) Allergy Unknown Verified 10/06/24 11:14 Discharge Plan Disposition Patient Disposition: Home, Self-Care Condition: Fair Follow up Plan Follow up with: Yessenia Ball APRN [Primary Care Provider, [facility]] - Enter time for follow up Referral Note: please call for appointment Prescriptions/Medication Reconciliation: New Januvia 50 mg tablet 50 mg PO DAILY Qty: 30 0RF Continued cetirizine 10 mg tablet 10 mg PO DAILY Patient Comments: TAKE 1 TABLET BY MOUTH ONCE DAILY metformin 1,000 mg tablet 1,000 mg PO BID Qty: 180 3RF ascorbic acid (vitamin C) 1,000 mg tablet 1 g PO DAILY atorvastatin 40 mg tablet 40 mg PO HS cholecalciferol (vitamin D3) 1,250 mcg (50,000 unit) capsule 1,250 mcg PO DAILY coQ10 (ubiquinol) [Qunol Judd CoQ10] 100 mg capsule 100 mg PO DAILY Discontinued hydralazine 25 mg tablet 25 mg PO DAILY Qty: 90 3RF magnesium oxide 500 mg capsule 500 mg PO DAILY Qty: 30 0RF Problem Reconciliation Problems Reviewed?: Yes Patient Discharge Instructions ACTIVITY: Continue current activity DIET: continue same diet Patient Instructions: DI for Urinary Tract Infection (UTI), DI for Sepsis -- Adult, Stop Light COPD, Stop Light Infection Print Language: Welsh Providers Primary Care Provider: Yessenia Ball Admit Provider: Marques Dewitt Attending Provider: Marques Dewitt
[2024-12-06 08:28] LABS: Alanine Aminotransferase 15 U/L (12-78); Albumin Level 3.2 g/dl (3.5-5.0); Albumin/Globulin Ratio 1.5 (1.1-1.8); Alkaline Phosphatase 85 U/L (38-126); Anion Gap 10.1 mEq/L (5-15); Aspartate Amino Transferase 35 U/L (14-36); Bilirubin,Total 0.6 mg/dl (0.2-1.3); Blood Urea Nitrogen 7 mg/dl (7-17); Calcium 8.6 mg/dl (8.4-10.2); Carbon Dioxide 28 mmol/L (22.0-30.0); Chloride 100 mmol/L (98-107); Creatinine Clearance Estimated 64 mL/min (50-200); Creatinine,Serum 0.50 mg/dl (0.52-1.04); Estimated Glomerular Filt Rate 124 ml/min (>60); GFR (African American) 150 ML/MIN (>60); Globulin 2.1 g/dL (1.3-3.2); Glucose 110 mg/dl (74-100); Magnesium 1.3 mg/dl (1.6-2.3); Potassium 4.1 mmoL/L (3.5-5.1); Sodium 134 mmol/L (136-145); Total Protein,Serum 5.3 g/dl (6.3-8.2)
[2024-12-06] MEDS: HEPARIN SODIUM 5,000 UNIT/ML VIAL 5000 UNIT SUBCUT (09:22)
[2024-12-06] MEDS: CEFTRIAXONE 1 GM 1 GM in 0.9 % SODIUM CHLORIDE 50 ML IV (09:22)
[2024-12-06] MEDS: LORATADINE 10MG TABLET 10 MG PO (09:22)
[2024-12-06] MEDS: MAGNESIUM SULFATE IN WATER 2 GM/50 ML PIGGYBACK IV ×3 (09:30→12:14)
[2024-12-06 11:03] LABS: POC Glucose,Bedside 142 (70-110)
[2024-12-06 11:52] VITALS: BP 112/62; PULSE 80; RESP 16; TEMP 36.8; O2SAT 92
--- NOTE | 2024-12-07 11:28 | SW/DCPLANNER ---
Spoke with patient's daughter on the phone. Patient's daughter stated that patient is doing well. Patient's daughter stated that she has not called or picked up patients new medicine. Patient's daughter stated that they plan on doing all of that today. Patient's daughter stated that they have concerns or questions at this time. Ginna Lopez
== END 2024-12-06 12:55 | disposition home or self-care (01) ==
LOC: ER 20:36 → 2ND 23:06
PROVIDERS: Internal Medicine; Nurse Practitioner; Admitting Provider Internal Medicine Adolescent Medicine; Emergency Provider Student in an Organized Health Care Education/Training Program; PCP Nurse Practitioner Family; Visit Provider Internal Medicine Adolescent Medicine
DX: A41.9 Sepsis, unspecified organism (principal); K52.9 Noninfective gastroenteritis and colitis, unspecified; I10 Essential (primary) hypertension; J44.9 Chronic obstructive pulmonary disease, unspecified; E11.9 Type 2 diabetes mellitus without complications; E87.6 Hypokalemia; I95.9 Hypotension, unspecified; E87.1 Hypo-osmolality and hyponatremia; M79.7 Fibromyalgia; N39.0 Urinary tract infection, site not specified; E86.1 Hypovolemia; E87.20 Acidosis, unspecified; E78.5 Hyperlipidemia, unspecified; F17.210 Nicotine dependence, cigarettes, uncomplicated; Z88.1 Allergy status to other antibiotic agents; Z88.5 Allergy status to narcotic agent; Z79.84 Long term (current) use of oral hypoglycemic drugs; Z79.899 Other long term (current) drug therapy; Z88.0 Allergy status to penicillin; Z89.422 Acquired absence of other left toe(s)
CPT/HCPCS: 96361 ×3; 96365; 96366 ×2; 96367 ×2; 96375 ×3; 36415; 70450; 71045; 72125; 74177; 80048; 80053; 80307; 80320; 81001; 82009; 82803; 82962; 83036; 83605; 83735; 84443; 84484; 85025; 87040; 87086; 93005; G0378; J0131; J0692; J0696; J1644; J1836; J2405; J3375; J3475; J7030; Q9967

== ENCOUNTER 2025-01-13 09:49 | Outpatient (CLI) | payer MEDICARE, SELFPAY ==
[2025-01-13 15:03] LABS: Anion Gap 10.4 mEq/L (5-15); Blood Urea Nitrogen 2 mg/dl (7-17); Calcium 9.3 mg/dl (8.4-10.2); Carbon Dioxide 32 mmol/L (22.0-30.0); Chloride 95 mmol/L (98-107); Creatinine,Serum 0.40 mg/dl (0.52-1.04); Estimated Glomerular Filt Rate 160 ml/min (>60); GFR (African American) 193 ML/MIN (>60); Glucose 154 mg/dl (74-100); Magnesium 1.4 mg/dl (1.6-2.3); Phosphorous 4.2 mg/dl (2.5-4.5); Potassium 3.4 mmoL/L (3.5-5.1); Sodium 134 mmol/L (136-145)
== END 2025-01-13 23:59 | disposition home or self-care (01) ==
LOC: LAB.DROPOF 01-15 09:50
PROVIDERS: PCP Nurse Practitioner Family; Visit Provider Nurse Practitioner Family
DX: E83.42 Hypomagnesemia (principal); E87.6 Hypokalemia
CPT/HCPCS: 80048; 83735; 84100

== ENCOUNTER 2025-03-15 11:48 | Outpatient (CLI) | payer MEDICARE, SELFPAY ==
[2025-03-15 17:27] LABS: Microscopic, Urine URINE MICROSCOPIC (MICROSCOPIC)
[2025-03-15 19:00] LABS: Chloride 92 mmol/L (98-107)
[2025-03-15 19:01] LABS: Potassium 4.1 mmoL/L (3.5-5.1); Sodium 132 mmol/L (136-145)
[2025-03-15 19:03] LABS: Creatinine,Serum 0.50 mg/dl (0.52-1.04); Estimated Glomerular Filt Rate 123 ml/min (>60); GFR (African American) 149 ML/MIN (>60)
[2025-03-15 19:04] LABS: Anion Gap 13.1 mEq/L (5-15); Blood Urea Nitrogen < 2 mg/dl (7-17); Carbon Dioxide 31 mmol/L (22.0-30.0)
[2025-03-15 19:45] LABS: Bilirubin,Urine Negative (Negative); Color,Urine YELLOW (Yellow); Glucose,Urine (UA) Negative (Negative); Ketones,Urine Negative (Negative); Leukocyte Esterase,Urine Negative (Negative); PH,Urine 6.5 (5.0-8.5); Protein,Urine Negative (Negative); Specific Gravity, Urine <= 1.005 (1.005-1.030); Urobilinogen,Urine 0.2 EU/dl (0.2)
[2025-03-15 21:02] LABS: Hemoglobin A1C 7.3 % (4.0-6.0)
[2025-03-15 21:10] LABS: Bacteria,Urine Trace /lpf; WBC,Urine Occasional #/hpf (0-3)
[2025-03-15 21:20] LABS: Calcium 9.4 mg/dl (8.4-10.2); Glucose 126 mg/dl (74-100); Magnesium 1.8 mg/dl (1.6-2.3)
== END 2025-03-15 23:59 | disposition home or self-care (01) ==
LOC: LAB.DROPOF 03-16 11:49
PROVIDERS: PCP Nurse Practitioner Family; Visit Provider Nurse Practitioner Family
DX: E83.42 Hypomagnesemia (principal); E11.9 Type 2 diabetes mellitus without complications
CPT/HCPCS: 80048; 81001; 82043; 82570; 83036; 83735; 87086